=== PATIENT | male | born 1975 | race Caucasian/White ===

== ENCOUNTER 2019-09-28 10:16 | Outpatient (CLI) | payer SELFPAY ==
[2019-09-28 10:43] LABS: Basophils Percent Auto 0.4 % (0.2-1.2); Eosinophils Absolute Auto 0.3 K/mm3 (0-0.3); Hematocrit 29.6 % (42.0-52.0); Hemoglobin 8.8 g/dL (14.0-18.0); Immature Granulocyte Absolute 0.01 K/mm3 (0.00-0.031); Immature Granulocyte Percent A 0.1 % (0-0.5); Lymphocytes Absolute Auto 2.39 K/mm3 (0.9-3.2); Lymphocytes Percent Auto 33.9 % (18.3-44.2); Mean Corpuscular HGB Conc 29.7 g/dl (32-36); Mean Corpuscular Hemoglobin 22.7 pg (26-34); Mean Corpuscular Volume 76.5 fl (80-100); Mean Platelet Volume 8.9 fl (7.4-10.4); Monocytes Absolute Auto 0.6 K/mm3 (0.1-0.6); Monocytes Percent Auto 8.2 % (2.6-8.5); Neutrophils Absolute Auto 3.8 K/mm3 (1.3-6.7); Neutrophils Percent Auto 53.4 % (45.5-73.1); Platelet Count Result 458 k/mm3 (150-375); Red Blood Count 3.87 M/mm3 (4.6-6.20); Red Cell Distribution Width 16.9 % (11.5-14.5); White Blood Count 7.1 K/mm3 (4.5-10.0)
[2019-09-28 10:53] LABS: Anisocytosis 1+ (NORMAL); Hypochromasia 1+ (NORMAL); Platelet Estimate Adequate (Adequate)
[2019-09-28 10:57] LABS: Alanine Aminotransferase 26 U/L (4-50); Albumin Level 3.8 g/dL (3.5-5.1); Alkaline Phosphatase 97 U/L (38-126); Aspartate Amino Transferase 26 U/L (17-59); Bilirubin,Total 0.1 mg/dL (0.2-1.3); Blood Urea Nitrogen 19 mg/dL (9-20); CRP 1.4 mg/dL (<1.0); Calcium 8.7 mg/dL (8.4-10.2); Carbon Dioxide 25 mmol/L (22-30); Chloride 105 mmol/L (98-107); Cholesterol 149 mg/dL (0-200); Estimated Glomerular Filt Rate > 60; Glucose 107 mg/dL (75-110); HDL Direct 38 mg/dL; Sodium 136 mmol/L (137-145); Triglycerides 110 mg/dL (<150)
[2019-09-28 11:06] LABS: LDL Cholesterol Direct 92 mg/dL
[2019-09-28 11:07] LABS: Erythrocyte Sedimentation Rate 67 mm/hr (0-20)
[2019-09-28 12:00] LABS: Folic Acid 12.5 ng/mL (2.76->20)
[2019-09-30 18:58] LABS: Methylmalonic Acid 165 nmol/L (87-318)
== END 2019-09-28 10:17 | disposition home or self-care (01) ==
LOC: ANHLAB 10:21
PROVIDERS: PCP Internal Medicine; Visit Provider Internal Medicine
DX: D50.0 Iron deficiency anemia secondary to blood loss (chronic) (principal); Z79.899 Other long term (current) drug therapy
CPT/HCPCS: 36415; 80053; 80061; 82607; 82746; 83921; 84443; 85025; 85652; 86140

== ENCOUNTER 2020-01-04 07:43 | Outpatient (RCR) | payer MEDICAID, SELFPAY ==
[2019-10-06 10:45] VITALS: BMI 24.7
== END 2020-01-04 23:59 | disposition home or self-care (01) ==
LOC: ANHWOC 07:43
PROVIDERS: PCP Internal Medicine; Visit Provider Internal Medicine
DX: T14.8XXD Other injury of unspecified body region, subsequent encounter (principal)
CPT/HCPCS: 99212; A9270; G0463

== ENCOUNTER 2020-03-28 08:56 | Outpatient (RCR) | payer SELFPAY | END 2020-04-17 23:59 | disposition home or self-care (01) | LOC: ANHWOC 08:56 | PROVIDERS: PCP Internal Medicine; Visit Provider Internal Medicine | DX: S81.831D Puncture wound without foreign body, right lower leg, subsequent encounter (principal) | CPT/HCPCS: 99212; A9270; G0463 ==

== ENCOUNTER 2020-07-11 07:27 | Outpatient (RCR) | payer SELFPAY | END 2020-07-17 23:59 | disposition home or self-care (01) | LOC: ANHWOC 07:27 | PROVIDERS: PCP Internal Medicine; Visit Provider Internal Medicine | DX: S81.831D Puncture wound without foreign body, right lower leg, subsequent encounter (principal) | CPT/HCPCS: 99212; A9270; G0463 ==

== ENCOUNTER 2022-07-03 20:16 | Emergency (ER) | payer SELFPAY ==
[2022-07-03 20:33] VITALS: BP 139/108; PULSE 93; RESP 20; TEMP 36.7; O2SAT 97
--- NOTE | 2022-07-03 21:11 | PC.NURSE ---
PT ELOPED OUT THE EMS ENTRANCE FROM ROOM 10. PT REFUSED TO COME BACK INSIDE TO CONTINUE EVAL. PT DOES NOT HAVE IV IN PLACE. HE HAS BEEN DRINKING ETOH TODAY AND MOST LIKELY INTOXICATED. PT DOES NOT HAVE CAR HERE HE ARRIVED VIA EMS. NAIMA MADE CONTACT WITH PT OUTSIDE AND HE CONTINUED TO REFUSE TO COME BACK INTO ED. JANESSA NARVAEZ NOTIFIED OF INCIDENT AND GIVEN PT DESCRIPTION. PROVIDER STATES PT DOES NOT HAVE TO COME BACK FOR EVAL/TX. INFORMED PD THAT WE WANT TO MAKE SURE PT IS SAFE.
--- NOTE | 2022-07-03 21:14 | ED.WOUNDLAC ---
HPI - Wound/Laceration General Chief Complaint: Wound/Laceration Stated Complaint: LEG WOUNDS, ETOH Time Seen by Provider: 07/03/22 20:28 History of Present Illness HPI narrative: 47-year-old man history of drug abuse presents to the emergency room via EMS intoxicated on EtOH for evaluation of multiple leg ulcerations. Patient admits to drinking 1-2 bottles of vodka daily and has a previous history of IV drug use. States that he has had chronic leg wounds to bilateral legs. Patient states his mother called 911 to have him come to the ER to be evaluated. On presentation, patient was observed looking around the room asking for his dog. Patient denies SI/HI. Related Data Home Medications Medication Instructions Recorded Confirmed No Home Medications 06/18/21 01/09/22 Allergies Allergy/AdvReac Type Severity Reaction Status Date / Time iodine Allergy Intermediate Rash Verified 01/09/22 07:35 Review of Systems Review of Systems: CONSTITUTIONAL: Denies fever, chills, or sweats. EYES: Denies visual changes, redness, or discharge. ENT: Denies rhinorrhea, congestion, sore throat, or otalgia. CARDIOVASCULAR: Denies chest pain, palpitations, or edema. RESPIRATORY: Denies cough or dyspnea. GASTROINTESTINAL: Denies abdominal pain, nausea, vomiting, or diarrhea. GENITOURINARY: Denies dysuria or hematuria. SKIN: Reports multiple lower extremity wounds MUSCULOSKELETAL: Denies back pain, joint pain, or myalgia. NEUROLOGIC: Denies headache, numbness, dizziness, or weakness. PSYCHIATRIC: Denies anxiety or depression. [facility] Past Medical History Medical History Blood loss anemia BMI 23.0-23.9, adult BMI 25.0-25.9,adult BMI 26.0-26.9,adult Drug addiction Encounter for routine adult health examination without abnormal findings Encounter to establish care Hx of drug abuse Iron deficiency anemia On custodial drug therapy Open wound Personal history of nicotine dependence Poor dentition Tobacco abuse Surgical History Surgical History H/O vascular surgery 2020- lower R ext Family History Family History Father Acute myocardial infarction Alcoholism Social History Social History Smoking status: Current every day smoker Gender identity (if verbalized by the patient): Male Exam Narrative: GENERAL: Chronically ill-appearing, and in no acute distress. HEAD: Normocephalic, atraumatic. EYES: Conjunctivae normal, PERRLA and EOMI. CHEST: Clear to auscultation. No respiratory distress. No wheezes rales or rhonchi. HEART: Regular rate and rhythm. No murmur heard. Normal peripheral pulses. ABDOMEN: Soft, nontender, nondistended, normal active bowel sounds. EXTREMITIES: Normal range of motion. No edema. No clubbing or cyanosis SKIN: LLE: 8 cm x 3 cm ovular ulceration involving the subcutaneous and dermal layers with purulent drainage and erythematous borders. RLE: 8 cm x 8 cm circular ulceration to medial posterior calf and 6 cm x 5cm circular ulceration involving the subcutaneous and dermal layers with purulent drainage and erythematous borders NEURO: No focal deficits. Alert and oriented x3. MAEW. CN's II-XI intact bilaterally, normal gait PSYCH: Uncooperative. Alcohol intoxication Course Vital Signs Vital signs: Vital Signs Temperature 36.7 C 07/03/22 20:33 Pulse Rate 93 07/03/22 20:33 Respiratory Rate 20 07/03/22 20:33 Blood Pressure 139/108 H 07/03/22 20:33 Pulse Oximetry 97 07/03/22 20:33 Oxygen Delivery Room Air 07/03/22 20:33 Temperature 36.7 C 07/03/22 20:33 Pulse Rate 93 07/03/22 20:33 Respiratory Rate 20 07/03/22 20:33 Blood Pressure 139/108 H 07/03/22 20:33 Pulse Oximetry 97 07/03/22 20:33 Oxygen Delivery Room Air 07/03/22 20:33 Discharge
== END 2022-07-03 22:07 | disposition left against medical advice (07) ==
PROVIDERS: Emergency Provider Nurse Practitioner Family; PCP Internal Medicine
DX: L97.929 Non-pressure chronic ulcer of unspecified part of left lower leg with unspecified severity (principal); L97.219 Non-pressure chronic ulcer of right calf with unspecified severity; F10.129 Alcohol abuse with intoxication, unspecified; D50.9 Iron deficiency anemia, unspecified; F17.200 Nicotine dependence, unspecified, uncomplicated; Y90.9 Presence of alcohol in blood, level not specified
CPT/HCPCS: 99281

== ENCOUNTER 2022-07-04 07:46 | Emergency (ER) | payer SELFPAY ==
[2022-07-04] VITALS (21 sets, daily range): BP systolic 149–171; BP diastolic 95–117; PULSE 79–105; RESP 13–23; TEMP 36.9; O2SAT 94–98
--- NOTE | 2022-07-04 07:53 | ECG_ITS ---
Measurements Intervals [place] Rate: 103 P: 81 AR: 152 QRS: 96 QRSD: 102 T: 72 QT: 355 QTc: 467 Interpretive Statements SINUS TACHYCARDIA POSSIBLE RIGHT ATRIAL ENLARGEMENT [0.25mV P-WAVE] BORDERLINE RIGHT AXIS DEVIATION [QRS AXIS > 90] BORDERLINE ECG NO PREVIOUS ECG AVAILABLE FOR COMPARISON Electronically Signed On 07-04-2022 14:49:02 LOCK INSTALLER by Simone Rahman M.D.
[2022-07-04] MEDS: LORazepam INJ (*CRX) 2 MG/ML VIAL IV PUSH (08:31)
[2022-07-04 08:32] LABS: Basophils Absolute Auto 0.1 K/mm3 (0.0-0.1); Basophils Percent Auto 0.9 % (0.2-1.2); Eosinophils Percent Auto 0.4 % (0-4.4); Hematocrit 53.1 % (42.0-52.0); Hemoglobin 17.6 g/dL (14.0-18.0); Immature Granulocyte Absolute 0.02 K/mm3 (0.00-0.031); Immature Granulocyte Percent A 0.2 % (0-0.5); Lymphocytes Absolute Auto 1.06 K/mm3 (0.9-3.2); Lymphocytes Percent Auto 11.4 % (18.3-44.2); Mean Corpuscular HGB Conc 33.1 g/dl (32-36); Mean Corpuscular Hemoglobin 30.1 pg (26-34); Mean Corpuscular Volume 90.8 fl (80-100); Monocytes Absolute Auto 0.6 K/mm3 (0.1-0.6); Monocytes Percent Auto 6.9 % (2.6-8.5); Neutrophils Absolute Auto 7.4 K/mm3 (1.3-6.7); Neutrophils Percent Auto 80.2 % (45.5-73.1); Platelet Count Result 209 k/mm3 (150-375); Red Blood Count 5.85 M/mm3 (4.6-6.20); Red Cell Distribution Width 19.7 % (11.5-14.5); White Blood Count 9.3 K/mm3 (4.5-10.0)
[2022-07-04] MEDS: SODIUM CHLORIDE 0.9% IV 1,000 ML 999 ML IV CONT (08:32)
[2022-07-04 08:49] LABS: Ethanol 11 mg/dL (<10)
[2022-07-04 08:50] LABS: Alanine Aminotransferase 63 U/L (6-50); Albumin Level 3.9 g/dL (3.5-5.1); Anion Gap 6 mmol/L (8-16); Aspartate Amino Transferase 123 U/L (17-59); Bilirubin,Total 0.9 mg/dL (0.2-1.3); Blood Urea Nitrogen 12 mg/dL (9-20); Calcium 8.6 mg/dL (8.4-10.2); Carbon Dioxide 32 mmol/L (22-30); Chloride 100 mmol/L (98-107); Estimated CRCL calculation 117 ml/min; Estimated Glomerular Filt Rate > 60; Glucose 117 mg/dL (65-110); Potassium 4.3 mmol/L (3.4-5.0); Sodium 138 mmol/L (137-145)
[2022-07-04 08:59] LABS: Alkaline Phosphatase 1214 U/L (38-126)
--- NOTE | 2022-07-04 09:04 | PC.NURSE ---
Pt states he is unable to urinate at this time
[2022-07-04 10:36] LABS: Add Urine Microscopic? YES; Appearance Urine Clear (Clear); Bilirubin Urine Negative (Negative); Blood Urine Trace-Intact (Negative); Color Urine Yellow (Yellow); Glucose Urine UA Negative (Negative); Ketones Urine Trace mg/dL (Negative); Leukocyte Esterase Ur Negative LEU/UL (Negative); Nitrate Urine Negative (Negative); Protein Urine 2+ mg/dL (Negative); pH Urine 8.5 (5.0-9.0)
[2022-07-04 10:51] LABS: Mucus Urine Rare /lpf; WBC Urine 0-3 /hpf
[2022-07-04] MEDS: SODIUM CHLORIDE 0.9% IV 1,000 ML 1000 ML (12:30)
--- NOTE | 2022-07-04 14:53 | ED.ALCOHOL ---
HPI - Alcohol General Chief Complaint: Alcohol Stated Complaint: ETOH withdrawl Time Seen by Provider: 07/04/22 07:59 Source: patient Mode of arrival: ambulatory Limitations: no limitations History of Present Illness HPI narrative: 47-year-old with a history of alcoholism, IV drug abuse here with complaints of having withdrawal symptoms. He states that he feels shaky, nervous and heart racing for past 1 day. His last drink was 2 days ago. Patient states that he usually drinks about 1/5 of vodka on a daily basis. Also states he had used IV heroin 2 days ago. She presently denies any chest pain or shortness of breath. Complains of leg ulcers on both the legs which has been ongoing for quite some time. No history of fever or chills. Denies abdominal pain, nausea or vomiting. MD complaint: alcohol withdrawal Last drink: days (ago) (1) Chronic alcohol use: Yes Previous visits for alcohol intoxication: Yes Recent trauma: No Associated symptoms: denies other symptoms, diaphoresis and tremors Treatments prior to arrival: none Related Data Allergies Allergy/AdvReac Type Severity Reaction Status Date / Time iodine Allergy Intermediate Rash Verified 07/04/22 10:30 Review of Systems Review of Systems: All systems reviewed & are unremarkable except as noted in HPI and below Constitutional: Constitutional: Reports no additional constitutional complaints Eyes: Eyes: Reports no additional eye complaints ENT: Reports system reviewed and no additional complaints, except as documented Cardiovascular: Cardiovascular: Reports no additional cardiovascular complaints Respiratory: Respiratory: Reports no additional respiratory complaints Gastrointestinal: Gastrointestinal: Reports no additional gastrointestinal complaints Musculoskeletal: Musculoskeletal: Reports no additional musculoskeletal complaints Neurologic: Reports system reviewed and no additional complaints, except as documented Psychiatric: Psychiatric: Reports anxiety Endocrine: Endocrine: Reports no additional endocrine complaints [facility] Past Medical History Medical History Blood loss anemia BMI 23.0-23.9, adult BMI 25.0-25.9,adult BMI 26.0-26.9,adult Drug addiction Encounter for routine adult health examination without abnormal findings Encounter to establish care Hx of drug abuse Iron deficiency anemia On group home drug therapy Open wound Personal history of nicotine dependence Poor dentition Tobacco abuse Surgical History Surgical History H/O vascular surgery 2020- lower R ext Family History Family History Father Acute myocardial infarction Alcoholism Social History Social History Smoking status: Current every day smoker Gender identity (if verbalized by the patient): Male Exam Narrative: GENERAL: Well-appearing, well-nourished, and in no acute distress. Anxious look HEAD: Normocephalic, atraumatic. EYES: PERRLA and EOMI. NECK: Supple. CHEST: Clear to auscultation. No respiratory distress. HEART: Tachycardia. No murmur heard. Normal peripheral pulses. ABDOMEN: Soft, nontender, nondistended, normal active bowel sounds. EXTREMITIES: Normal range of motion. No edema. He has 5 cm nonhealing ulcer on his right as well as left leg with a thick eschar no drainage SKIN: Warm, dry, no rash. NEURO: No focal deficits. Alert and oriented x3. PSYCH: Normal mood and affect. Course Course Emergency Course: 47-year-old with a history of alcohol and IV drug abuse now having withdrawal symptoms he was given IV fluids and IV Ativan. Patient wants to be admitted. We did inform him that we do not admit him for rehab program in this hospital. Did consult pharmacovigilance specialist who was here to see the patient. He was given resources
--- NOTE | 2022-07-04 15:11 | PCCCNOTE ---
Addendum entered by Janice Austin RN 07/04/22 15:44: Dr. Magdaleno has made a medical decision to admit. Original Note: Late entry: Called by ER to meet with patient regarding detox at 1140. Met with patient he states that he states that his last drink was two days ago. Per Dr. Magdaleno, he does not have a diagnosis for admisison. He lives in [place] with his . Patient is seeking detox. Patient states that he has never done detox before. Patient states that he is self pay, I asked if he has ever applied for medicaid but he is unsure. Called to Joe at [facility] and he will be over in a 1/2 hour to meet with the patient. Called to [facility] no beds till . Called to [facility] and left a message. Called to [facility] no beds and no medical screening appointments until Thursday. Message left with [facility]. Message left with [facility]. Called to [facility], they do not do medical detox. Joe from [facility] for assessment. Joe states that he has been in contact with Rosana at [facility], the do not have beds at this time Patient is agreeable to be in contact with Joe daily, and Rosana will continue to be in contact with Joe on bed status. Dr. Magdaleno updated, and plans to discharge with medication for withdrawal.
[2022-07-04] MEDS: ONDANSETRON INJ 4 MG/2 ML VIAL IV PUSH (15:18)
--- NOTE | 2022-07-04 16:14 | PC.NURSE ---
Patient continued to have tremors. Provider was to admit patient, but patient refused admission. Patient A&Ox4 and able to make decisions himself. Patient discharged per Provider. Patient wheeled out of department by primary RN.
[2022-07-04 16:33] LABS: Influenza A QL RT-PCR Negative (Negative); Influenza B QL RT-PCR Negative (Negative); SARS-CoV-2 RNA PCR Negative
== END 2022-07-04 16:17 | disposition home or self-care (01) ==
PROVIDERS: Emergency Provider Family Medicine; PCP Internal Medicine
DX: F10.239 Alcohol dependence with withdrawal, unspecified (principal); D50.9 Iron deficiency anemia, unspecified; F17.200 Nicotine dependence, unspecified, uncomplicated; R00.0 Tachycardia, unspecified; R94.31 Abnormal electrocardiogram [ECG] [EKG]; Y90.0 Blood alcohol level of less than 20 mg/100 ml
CPT/HCPCS: 36415; 80053; 80307; 81001; 85025; 87636; 93005; 96361; 96374; 96375; 99284; J2060; J2405; J7030

== ENCOUNTER 2023-10-19 21:28 | Emergency (ER) | payer SELFPAY ==
[2023-10-19 21:34] VITALS: BP 132/90; PULSE 105; RESP 16; TEMP 36.1; O2SAT 99
[2023-10-20 01:13] VITALS: BP 147/94; PULSE 100; RESP 18; O2SAT 99
[2023-10-20 02:06] VITALS: BP 146/96; PULSE 100; RESP 18; O2SAT 99
--- NOTE | 2023-10-20 04:17 | ED.GENADULT ---
HPI - General Adult General Chief complaint: Nausea/Vomiting/Diarrhea Stated complaint: weakness, dehydration, n/v, sore to R leg Time Seen by Provider: 10/20/23 01:13 History of Present Illness HPI narrative: Patient presenting with concern for possible withdrawal, he does use fentanyl and alcohol daily, last use 3:00 p.m. for both. He also has a chronic ulcer on his right leg that he has been caring for which has been healing well. Related Data Allergies Allergy/AdvReac Type Severity Reaction Status Date / Time iodine Allergy Intermediate Rash Verified 10/19/23 21:29 Review of Systems Review of Systems: CONST: No fever. HEENT: No sore throat C/V: No chest pain RESP: No cough GI: Nausea : No dysuria. 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 Open wound Personal history of nicotine dependence Poor dentition Tobacco abuse Surgical History Surgical History H/O vascular surgery 2020- lower R ext Family History Family History Father Acute myocardial infarction Alcoholism Social History Social History Smoking status: Current every day smoker Second hand tobacco smoke exposure: Yes Substance use: former Lack of Transportation: No Lack of Food: Never True Concerned About Future Housing: No Difficulty Paying Gas/Electric Bills: No Difficulty Paying for Meds: No Currently Unemployed: No Education: Trade/Vocational Certificate Difficulty w/ Childcare or Family Care: No Living arrangements: with family Occupation/Education: occupation Gender identity (if verbalized by the patient): Male Exam Narrative: EXAMINATION OF ORGAN SYSTEMS/BODY AREAS: Constitutional: Vital signs per nursing GENERAL:[No acute distress, non-toxic appearing.] HEAD: Normal with no signs of head trauma. EYES: EOMI, conjunctiva normal ENT: Hearing grossly intact LUNGS: Nonlabored breathing. HEART: [Regular rate and rhythm] ABD: [Soft], [nontender to palpation] EXT: Normal range of motion including normal flexion and extension of right knee SKIN: Large ulcer to the right lower leg that does appear to be chronic without surrounding erythema or purulent drainage NEURO: [Alert and oriented x 3. No gross focal sensory or strength deficits.] No tremors. PSYCH: Normal affect Course Vital Signs Vital signs: Vital Signs Temperature 97 F L 10/19/23 21:34 Pulse Rate 105 H 10/19/23 21:34 Respiratory Rate 16 10/19/23 21:34 Blood Pressure 132/90 10/19/23 21:34 Pulse Oximetry 99 10/19/23 21:34 Oxygen Delivery Room Air 10/19/23 21:34 Temperature 97 F L 10/19/23 21:34 Pulse Rate 100 10/20/23 02:06 Respiratory Rate 18 10/20/23 02:06 Blood Pressure 146/96 H 10/20/23 02:06 Pulse Oximetry 99 10/20/23 02:06 Oxygen Delivery Room Air 10/19/23 21:34 Medical Decision Making [facility] Narrative Medical decision making narrative: Patient with history of alcohol and mental disorder presents here due to concern for withdrawal, last use was less than 12 hours ago, I did let the patient know that unfortunately we do not have detox here, he is well-appearing here, with normal vital signs, no tremors, is not in acute withdrawal on my exam currently, he has been on Suboxone in the past and he has never had alcohol withdrawal seizures when he stops drinking, he has his brot
== END 2023-10-20 02:20 | disposition home or self-care (01) ==
PROVIDERS: Emergency Provider Emergency Medicine
DX: F11.10 Opioid abuse, uncomplicated (principal); F10.10 Alcohol abuse, uncomplicated; Y90.9 Presence of alcohol in blood, level not specified; D50.9 Iron deficiency anemia, unspecified; F17.200 Nicotine dependence, unspecified, uncomplicated
CPT/HCPCS: 99283

== ENCOUNTER 2023-11-29 09:12 | Emergency (ER) | payer SELFPAY ==
[2023-11-29] VITALS (14 sets, daily range): BP systolic 129–157; BP diastolic 102–108; PULSE 117–122; RESP 14–19; TEMP 36.6; O2SAT 91–100
--- NOTE | ~2023-11-29 | XR_ITS ---
EXAMINATION: XR chest 1V portable DATE: 11/29/2023 09:41 INDICATION: Shortness of breath. TECHNIQUE: A single frontal view of the chest was obtained on 2 radiographs. COMPARISON: None. FINDINGS: There is no pneumonia, pleural effusion, or pneumothorax. The heart size is normal. IMPRESSION: 1. No acute cardiopulmonary disease. Reviewed, dictated and finalized at location E.
--- NOTE | 2023-11-29 09:23 | PC.NURSE ---
pt said he is IV drug user for 25 years, last time he had any drugs of this morning at 630am Fentanyl, did drink alcohol too. Wound to right lower leg from injecting IV drug noted.
--- NOTE | 2023-11-29 10:10 | ED.GENADULT ---
HPI - General Adult General Chief complaint: Shortness of Breath/Dyspnea Stated complaint: dyspnea Time Seen by Provider: 11/29/23 09:27 History of Present Illness HPI narrative: Patient is a 48-year-old male who presents to the emergency department this morning complaining of shortness of breath. Patient admits to have a history of asthma. Patient is presenting from a local police department. He does present here via EMS and EMS did administer DuoNeb breathing treatment prior to arrival. Patient admits that he does use an inhaler for his shortness of breath but felt as though it is not working. He denies any sharp stabbing chest pain, denies any nausea or vomiting, and abdominal pain, fevers or chills. He is currently denying any additional symptoms or concerns at this time. Related Data Allergies Allergy/AdvReac Type Severity Reaction Status Date / Time iodine Allergy Intermediate Rash Verified 10/19/23 21:29 Review of Systems Review of Systems: All systems are reviewed and are negative unless stated otherwise in the HPI. [facility] Past Medical History Medical History Blood loss anemia BMI 23.0-23.9, adult BMI 25.0-25.9,adult BMI 26.0-26.9,adult Drug addiction Encounter for routine adult health examination without abnormal findings Encounter to establish care Hx of drug abuse Iron deficiency anemia On penitentiary drug therapy Open wound Personal history of nicotine dependence Poor dentition Tobacco abuse Surgical History Surgical History H/O vascular surgery 2020- lower R ext Family History Family History Father Acute myocardial infarction Alcoholism Social History Social History Smoking status: Current every day smoker Second hand tobacco smoke exposure: Yes Substance use: former Lack of Transportation: No Lack of Food: Never True Concerned About Future Housing: No Difficulty Paying Gas/Electric Bills: No Difficulty Paying for Meds: No Currently Unemployed: No Education: Trade/Vocational Certificate Difficulty w/ Childcare or Family Care: No Living arrangements: with family Occupation/Education: occupation Gender identity (if verbalized by the patient): Male Exam Narrative: General: Alert, awake, afebrile, in no acute distress. HEENT: PERRL, no rhinorrhea, no post nasal drip, oropharynx clear. Cardiovascular: Tachycardic with regular rhythm, no murmurs, rubs or gallops, no peripheral edema. Respiratory: Coarse breath sounds bilaterally, no tachypnea, no wheezing appreciated, no respiratory distress. Abdomen: Soft, nontender, nondistended, no rebound, no guarding, no peritoneal signs. Musculoskeletal: No joint swelling or deformity, normal muscle tone. Skin: No rashes or petechia, no signs of infection. Neurological: Alert and oriented to person, place, and time. Follows all commands. No focal deficits, speech is clear and fluent. Course Vital Signs Vital signs: Vital Signs Pulse Rate 122 H 11/29/23 09:18 Respiratory Rate 14 11/29/23 09:18 Blood Pressure 130/103 H 11/29/23 09:18 Pulse Oximetry 94 11/29/23 09:18 Temperature 97.9 F 11/29/23 09:20 Pulse Rate 122 H 11/29/23 10:30 Respiratory Rate 17 11/29/23 10:30 Blood Pressure 157/102 H 11/29/23 10:16 Pulse Oximetry 95 11/29/23 10:16 Oxygen Delivery Room Air 11/29/23 09:22 Medical Decision Making MDM Narrative Medical decision making narrative: The patient was evaluated by myself in the emergency department. History is obtained from patient who is an independent historian and physical exam was performed. External medical records were reviewed at this time. IV was established and pertinent tests were ordered. Patient was administered a DuoNeb breathi
[2023-11-29] MEDS: IPRATROPIUM 0.5 MG/ALBUTEROL SULFATE 2.5 MG AMPUL.NEB 3 ML INHALATION (10:15)
--- NOTE | 2023-11-29 10:35 | PC.NURSE ---
Pt refuses IV, and IV medications, said I want to leave, EDP made franco. AMA paper signed
== END 2023-11-29 10:40 | disposition left against medical advice (07) ==
LOC: ANHED 09:34
PROVIDERS: Emergency Provider Emergency Medicine; PCP Internal Medicine
DX: J45.901 Unspecified asthma with (acute) exacerbation (principal); R06.02 Shortness of breath; F17.210 Nicotine dependence, cigarettes, uncomplicated; D64.9 Anemia, unspecified
CPT/HCPCS: 71045; 94640; 99284

== ENCOUNTER 2023-11-29 11:59 | Emergency (ER) | payer SELFPAY ==
--- NOTE | ~2023-11-29 | XR_ITS ---
EXAMINATION: XR tibia fibula RT 2V DATE: 11/29/2023 13:49 INDICATION: Lower leg ulcer. TECHNIQUE: 2 views of right tibia and fibula on 4 radiographs were obtained. COMPARISON: None. FINDINGS: Bone alignment is normal. No fracture. There is nonaggressive mature periosteal reaction of the tibia and fibula. Joint spaces are normal. No knee joint effusion. There are embolization coils posterior to the tibia. IMPRESSION: 1. Nonaggressive mature periosteal reaction of the tibia and fibula, which is most commonly seen with venous stasis or old healed fractures. Reviewed, dictated and finalized at location E. IMPRESSION: 1. Nonaggressive mature periosteal reaction of the tibia and fibula, which is m ost commonly seen with venous stasis or old healed fractures.
[2023-11-29 12:24] VITALS: BP 112/83; PULSE 128; RESP 18; TEMP 37; O2SAT 96
--- NOTE | 2023-11-29 12:37 | ED.GENADULT ---
HPI - General Adult General Chief complaint: Medical Clearance Stated complaint: fit for confinement Time Seen by Provider: 11/29/23 12:16 History of Present Illness HPI narrative: Patient is 48-year-old male who presents to the emergency department this morning in police custody for fit for confinement. Patient was seen at our facility earlier today for an asthma exacerbation and left against medical advice prior to completion of his workup. Patient got arrested at and was brought by PD for evaluation as patient does have a wound in his right lower extremity along his posterior calf region that he does not seem to be concerned about. Patient states that he got the wound from shooting heroin into his lack. He admits that he has had this wound for years and sometimes it smells bad but otherwise does not bother him. Patient denies any pain along his wound and is currently denying any other symptoms. Patient's only complaint is not wanting to go to [facility]. Patient admits to history of IV heroin use and alcohol abuse. Patient states that he did drink a whole bottle of alcohol this morning, can not specify what type of bottle and admits to drinking 2 beers as well. Related Data Allergies Allergy/AdvReac Type Severity Reaction Status Date / Time iodine Allergy Intermediate Rash Verified 11/29/23 15:19 Review of Systems Review of Systems: All systems are reviewed and are negative unless stated otherwise in the HPI. PMF Past Medical History Medical History Blood loss anemia BMI 23.0-23.9, adult BMI 25.0-25.9,adult BMI 26.0-26.9,adult Drug addiction Encounter for routine adult health examination without abnormal findings Encounter to establish care Hx of drug abuse Iron deficiency anemia On senior care drug therapy Open wound Personal history of nicotine dependence Poor dentition Tobacco abuse Surgical History Surgical History H/O vascular surgery 2020- lower R ext Family History Family History Father Acute myocardial infarction Alcoholism Social History Social History Smoking status: Current every day smoker Second hand tobacco smoke exposure: Yes Substance use: former Lack of Transportation: No Lack of Food: Never True Concerned About Future Housing: No Difficulty Paying Gas/Electric Bills: No Difficulty Paying for Meds: No Currently Unemployed: No Education: Trade/Vocational Certificate Difficulty w/ Childcare or Family Care: No Living arrangements: with family Occupation/Education: occupation Gender identity (if verbalized by the patient): Male Exam Narrative: General: Alert, awake, afebrile, in no acute distress. HEENT: PERRL, no rhinorrhea, no post nasal drip, oropharynx clear. Cardiovascular: Regular rate and rhythm, no murmurs, rubs or gallops, no peripheral edema. Respiratory: Coarse breath sounds bilaterally, no tachypnea, no wheezing noted, no respiratory distress. Abdomen: Soft, nontender, nondistended, no rebound, no guarding, no peritoneal signs. Musculoskeletal: No joint swelling or deformity, normal muscle tone, large wound along the patient's right posterior calf appears to be chronic in nature, some yellow/greenish dried discharge notes along the edges. Skin: No rashes or petechia, no signs of infection. Neurological: Alert and oriented to person, place, and time. Follows all commands. No focal deficits, speech is clear and fluent. Course Vital Signs Vital signs: Vital Signs Temperature 98.6 F 11/29/23 12:24 Pulse Rate 128 H 11/29/23 12:24 Respiratory Rate 18 11/29/23 12:24 Blood Pressure 112/83 11/29/23 12:24 Pulse Oximetry 96 11/29/23 12:24 Temperature 98.6 F 11/29/23 12:24 Pulse Rate 128 H 11/29/23 12:24 R
[2023-11-29] MEDS: SODIUM CHLORIDE 0.9% IV 1,000 ML 999 ML IV CONT (13:28)
[2023-11-29 13:40] LABS: Basophils Absolute Auto 0.1 K/mm3 (0.0-0.1); Basophils Percent Auto 0.7 % (0.2-1.2); Hematocrit 46.8 % (42.0-52.0); Hemoglobin 16.8 g/dL (14.0-18.0); Immature Granulocyte Absolute 0.04 K/mm3 (0.00-0.031); Immature Granulocyte Percent A 0.4 % (0-0.5); Lymphocytes Absolute Auto 1.29 K/mm3 (0.9-3.2); Lymphocytes Percent Auto 11.4 % (18.3-44.2); Mean Corpuscular HGB Conc 35.9 g/dl (32-36); Mean Corpuscular Hemoglobin 36.1 pg (26-34); Mean Corpuscular Volume 100.4 fl (80-100); Mean Platelet Volume 10.1 fl (7.4-10.4); Monocytes Absolute Auto 0.6 K/mm3 (0.1-0.6); Monocytes Percent Auto 4.9 % (2.6-8.5); Neutrophils Absolute Auto 9.4 K/mm3 (1.3-6.7); Neutrophils Percent Auto 82.6 % (45.5-73.1); Platelet Count Result 387 k/mm3 (150-375); Red Blood Count 4.66 M/mm3 (4.6-6.20); Red Cell Distribution Width 13.8 % (11.5-14.5); White Blood Count 11.3 K/mm3 (4.5-10.0)
[2023-11-29 13:50] LABS: Alanine Aminotransferase 71 U/L (6-50); Albumin Level 4.1 g/dL (3.5-5.1); Alkaline Phosphatase 504 U/L (38-126); Anion Gap 11 mmol/L (4-12); Aspartate Amino Transferase 139 U/L (17-59); Blood Urea Nitrogen 16 mg/dL (9-20); Carbon Dioxide 30 mmol/L (22-30); Chloride 95 mmol/L (98-107); Estimated CRCL calculation 92 ml/min; Estimated Glomerular Filt Rate > 60; Glucose 131 mg/dL (65-110); Potassium 3.2 mmol/L (3.4-5.0); Sodium 136 mmol/L (137-145)
[2023-11-29 13:51] LABS: Lactic Acid Reflex 4.1 mmol/L (0.7-2.0)
[2023-11-29] MEDS: POTASSIUM CHLORIDE 20 MEQ ER TABLET 40 MEQ PO (14:03)
[2023-11-29] MEDS: MORPHINE SULFATE (*CRX) 2 MG/ML INJ IV PUSH (15:17)
[2023-11-29] MEDS: ceFAZolin 1 GM/NS 50 ML 1 GM/50 ML BAG IVPB (15:39)
--- NOTE | 2023-11-29 15:57 | PC.NURSE ---
PD notified that pt is going to be admitted. PD removed pt handcuffs and left the building. After PD left, pt requests to leave. Pt signed AMA form and left the room.
[2023-11-29 16:00] VITALS: PULSE 68; RESP 16; O2SAT 98
--- NOTE | 2023-11-29 16:00 | PC.NURSE ---
Primary Substance Abuse Counselor and 2nd MS charge nurse notified that pt leaving AMA.
[2023-11-29 16:37] LABS: Reflex Lactic Acid Yes or No Add Lactic
== END 2023-11-29 16:01 | disposition left against medical advice (07) ==
PROVIDERS: Emergency Provider Emergency Medicine; PCP Internal Medicine
DX: S81.801A Unspecified open wound, right lower leg, initial encounter (principal); E87.20 Acidosis, unspecified; R74.01 Elevation of levels of liver transaminase levels; F10.10 Alcohol abuse, uncomplicated; F17.210 Nicotine dependence, cigarettes, uncomplicated; X58.XXXA Exposure to other specified factors, initial encounter
CPT/HCPCS: 36415; 73590; 80053; 83605; 85025; 87040; 96361; 96365; 96375; 99284; A9270; J0690; J2270; J7030

== ENCOUNTER 2023-11-29 17:39 | Emergency (ER) | payer SELFPAY ==
[2023-11-29 17:56] VITALS: BP 114/78; PULSE 105; RESP 20; TEMP 36.4; O2SAT 95
--- NOTE | 2023-11-29 18:03 | ED.GENADULT ---
HPI - General Adult General Chief complaint: Psychiatric Symptoms <Zeferino Mccloud MD - Last Filed: 11/30/23 16:43> Stated complaint: PSYCH <Zeferino Mccloud MD - Last Filed: 11/30/23 16:43> Time Seen by Provider: 11/29/23 17:48 <Zeferino Mccloud MD - Last Filed: 11/30/23 16:43> History of Present Illness HPI narrative: Patient is a 48-year-old male who presents the emergency department this evening again for the 3rd time today after signing out AMA twice. Patient is currently in PD custody and initially was seen earlier today for shortness of breath and concern for an asthma exacerbation, patient left AMA. Patient then return to the emergency department in PD custody for fit for confinement, however, patient was noted to have a chronic open wound to his right lower extremity and due to his tachycardia, there was some concern for sepsis and patient was admitted for IV antibiotics. Shortly after patient was admitted, he did decide to leave against medical advice. Patient is then coming in here today due to concern for suicidal and homicidal ideations. Patient went to his home and did some drugs, he states that he took 3 pills of the white stuff and then took 3 shots of vodka. Patient states that his mom had called police and patient was picked up and brought here. Patient told the police justice that if he had his gun he would end his life right now and that he would drive his car off the bridge into the [place]. When patient was questioned regarding these after initially denying suicidal homicidal ideations, he states that he may have said those words but he did not mean them since he has a dog and he has nieces and he does not want to end his life. <Zeferino Mccloud MD - Last Filed: 11/30/23 16:43> Related Data Allergies/adverse reactions: Allergies Allergy/AdvReac Type Severity Reaction Status Date / Time iodine Allergy Intermediate Rash Verified 11/29/23 15:19 <Zeferino Mccloud MD - Last Filed: 11/30/23 16:43> Review of Systems Review of Systems: All systems are reviewed and are negative unless stated otherwise in the HPI. 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 Open wound Personal history of nicotine dependence Polydrug abuse, continuous Poor dentition Tobacco abuse <Zeferino Mccloud MD - Last Filed: 11/30/23 16:43> Surgical History Surgical History: Surgical History H/O vascular surgery 2020- lower R ext <Zeferino Mccloud MD - Last Filed: 11/30/23 16:43> Family History Family History: Family History Father Acute myocardial infarction Alcoholism <Zeferino Mccloud MD - Last Filed: 11/30/23 16:43> Social History Social History: Social History Smoking packs per day: 3 Smoking cigarettes per day: 60.0 Years smoked: 30 Smoking pack-years: 90.00 Smoking status: Current every day smoker Tobacco type: cigarettes Second hand tobacco smoke exposure: Yes Alcohol intake: current Drinks per week: 300 Substance use: current Substance use type: opiates Other substance usage details: injection Last use: 11/29/2023 Do You Feel Safe in your Home?: Yes Lack of Transportation: No Lack of Food: Never True Current Housing: I Do Not Have Housing Concerned About Future Housing: YES Difficulty Paying Gas/Electric Bills: YES Difficulty Paying for Meds: YES Currently Unemployed: YES Ed
--- NOTE | 2023-11-29 18:25 | PC.NURSE ---
Called phlebotomy to assist with blood draw.
[2023-11-29 19:18] LABS: Basophils Absolute Auto 0.1 K/mm3 (0.0-0.1); Basophils Percent Auto 0.4 % (0.2-1.2); Hematocrit 38.5 % (42.0-52.0); Hemoglobin 13.5 g/dL (14.0-18.0); Immature Granulocyte Absolute 0.05 K/mm3 (0.00-0.031); Immature Granulocyte Percent A 0.4 % (0-0.5); Lymphocytes Absolute Auto 0.85 K/mm3 (0.9-3.2); Lymphocytes Percent Auto 6.1 % (18.3-44.2); Mean Corpuscular HGB Conc 35.1 g/dl (32-36); Mean Corpuscular Hemoglobin 35.8 pg (26-34); Mean Corpuscular Volume 102.1 fl (80-100); Mean Platelet Volume 10.4 fl (7.4-10.4); Monocytes Absolute Auto 0.8 K/mm3 (0.1-0.6); Monocytes Percent Auto 5.8 % (2.6-8.5); Neutrophils Absolute Auto 12.2 K/mm3 (1.3-6.7); Neutrophils Percent Auto 87.3 % (45.5-73.1); Platelet Count Result 308 k/mm3 (150-375); Red Blood Count 3.77 M/mm3 (4.6-6.20); Red Cell Distribution Width 13.8 % (11.5-14.5); White Blood Count 13.9 K/mm3 (4.5-10.0)
--- NOTE | 2023-11-29 19:18 | PC.NURSE ---
Report received from NANO Baumann. Assumed care of patient at this time.
[2023-11-29 19:27] LABS: Acetaminophen < 10 ug/mL (10-30); Ethanol 178 mg/dL (<10); Salicylate < 1.0 mg/dL (2-20)
[2023-11-29 19:28] LABS: Alanine Aminotransferase 50 U/L (6-50); Albumin Level 3.2 g/dL (3.5-5.1); Alkaline Phosphatase 369 U/L (38-126); Anion Gap 14 mmol/L (4-12); Aspartate Amino Transferase 95 U/L (17-59); Bilirubin,Total 0.8 mg/dL (0.2-1.3); Blood Urea Nitrogen 16 mg/dL (9-20); Carbon Dioxide 20 mmol/L (22-30); Chloride 100 mmol/L (98-107); Estimated CRCL calculation 90 ml/min; Estimated Glomerular Filt Rate > 60; Glucose 160 mg/dL (65-110); Potassium 3.1 mmol/L (3.4-5.0); Sodium 134 mmol/L (137-145)
--- NOTE | 2023-11-29 19:44 | PC.NURSE ---
When this RN went to assess patient, patient yelling and stating I don't feel good! I am dope sick, I need the doctor!! This RN informed ERP and ERP and this RN went to speak with patient. Patient agreeable to meds to help with anxiety and withdrawal. Patient denies any SI/HI.
[2023-11-29] MEDS: BUPRENORPHINE HCL (*CRX) 2 MG SUBLINGUAL TABLET 8 MG PO ×2 (20:04→21:42)
[2023-11-29] MEDS: POTASSIUM CHLORIDE 20 MEQ PACKET (FOR LIQUID) 40 MEQ PO (20:10)
[2023-11-29] MEDS: NICOTINE (*PBKC) 14 MG PATCH 1 PATCH TRANSDERM (20:44)
[2023-11-29] MEDS: CEPHALEXIN 500 MG CAPSULE PO (21:41)
--- NOTE | 2023-11-29 21:44 | PC.NURSE ---
Patient requests to go home. ERP notified. Patient given more suboxone and abx for infection. Patient a/ox4, denies any SI/HI. refrigeration specialist aware and arranging for cab.
--- NOTE | 2023-11-29 22:18 | PC.NURSE ---
Patient unsteady on his feet, unable to leave yet. Patient informed he needs to be more steady on his feet before discharge.
--- NOTE | 2023-11-29 22:44 | PC.NURSE ---
Addendum entered by Jody Maldonado RN 11/29/23 22:48: Patient had consistently denied any SI/HI while in room 15. Original Note: Patient consistently requesting to leave. Patient demonstrated a steady unassisted gait. ERP watched patient demonstrate a steady gait. Patient stating he wants to leave AMA. Patient informed of risks of leaving AMA and benefits of staying. Patient a/ox4, verbalized understanding. Patient signed AMA form and discharge papers. Patient refused repeat VS. Patient taken to the waiting room by security to wait for his cab. Patient has belongings with him.
== END 2023-11-29 22:49 | disposition left against medical advice (07) ==
PROVIDERS: Emergency Medicine; Emergency Provider Student in an Organized Health Care Education/Training Program; PCP Internal Medicine
DX: S81.801A Unspecified open wound, right lower leg, initial encounter (principal); F10.10 Alcohol abuse, uncomplicated; Y90.6 Blood alcohol level of 120-199 mg/100 ml; F17.210 Nicotine dependence, cigarettes, uncomplicated; D64.9 Anemia, unspecified; X58.XXXA Exposure to other specified factors, initial encounter; Z59.02 Unsheltered homelessness
CPT/HCPCS: 36415; 80053; 80307; 85025; 99284; A9270

== ENCOUNTER 2023-11-30 00:17 | Inpatient (IN) | payer SELFPAY ==
[2023-11-30] VITALS (34 sets, daily range): BP systolic 113–158; BP diastolic 95–110; PULSE 88–112; RESP 15–45; TEMP 36.3–36.9; O2SAT 91–100
--- NOTE | ~2023-11-30 | XR_ITS ---
EXAMINATION: XR chest 1V portable DATE: 11/30/2023 05:46 INDICATION: Elevated troponin. TECHNIQUE: A single frontal view of the chest was obtained on 2 radiographs. COMPARISON: Chest single view 11/29/2023 FINDINGS: There is no pneumonia, pleural effusion, or pneumothorax. The heart size is normal. IMPRESSION: 1. No acute cardiopulmonary disease. Reviewed, dictated and finalized at location E.
--- NOTE | 2023-11-30 02:34 | PC.NURSE ---
PD at bedside. Patient requesting to leave. ERP notified and speaking with patient and PD.
--- NOTE | 2023-11-30 02:37 | ED.GENADULT ---
HPI - General Adult General Chief complaint: Unspecified Stated complaint: Cold, wounds to leg Time Seen by Provider: 11/30/23 01:26 Source: patient and police Limitations: no limitations History of Present Illness HPI narrative: Patient is a 48-year-old male presents to the emergency department because he was repeatedly going to his mother's home where they have a restraining order against him and said that he was cold to police and was brought here for further evaluation. Patient states that he was going to his mom's house to get his car that is there and he was going to take the car to chest not to get treatment for his alcohol use disorder. Patient notes that he has been drinking daily at approximately a 5th per day last drink was earlier today. Patient also admits to using opioids daily. Patient was given buprenorphine earlier today. Patient offered treatment for his leg wound and treatment for alcohol withdrawal addition opioid withdrawal and would like to proceed with this. Patient denies homicidal or suicidal ideations. Related Data Allergies Allergy/AdvReac Type Severity Reaction Status Date / Time iodine Allergy Intermediate Rash Verified 11/29/23 15:19 Review of Systems Review of Systems: All systems reviewed & are unremarkable except as noted in HPI and below PMFSH Past Medical History Medical History Blood loss anemia BMI 23.0-23.9, adult BMI 25.0-25.9,adult BMI 26.0-26.9,adult Drug addiction Encounter for routine adult health examination without abnormal findings Encounter to establish care Hx of drug abuse Iron deficiency anemia On retirement drug therapy Open wound Personal history of nicotine dependence Poor dentition Tobacco abuse Surgical History Surgical History H/O vascular surgery 2020- lower R ext Family History Family History Father Acute myocardial infarction Alcoholism Social History Social History Smoking packs per day: 30 Smoking cigarettes per day: 600.0 Years smoked: 30 Smoking pack-years: 900.00 Smoking status: Current every day smoker Tobacco type: cigarettes Second hand tobacco smoke exposure: Yes Drinks per week: 300 Substance use: former Substance use type: opiates Do You Feel Safe in your Home?: Yes Lack of Transportation: No Lack of Food: Never True Current Housing: I Do Not Have Housing Concerned About Future Housing: YES Difficulty Paying Gas/Electric Bills: YES Difficulty Paying for Meds: YES Currently Unemployed: YES Education: Associate Degree Difficulty w/ Childcare or Family Care: No Living arrangements: with family Occupation/Education: occupation Gender identity (if verbalized by the patient): Male Spiritual care concerns: No Comments At time of signature, I have reviewed and agree with nursing past medical, surgical, social and family history unless otherwise noted. Please see the nursing chart for further information. There is no relevant family history pertinent to the presenting complaint. Exam Narrative: CONST: No acute distress. Well nourished. HENMT: Head is normocephalic and atraumatic. Tacky mucous membranes. No posterior oropharynx erythema. EYES: No conjunctival icterus, injection, or pallor. PERRL. NECK: No meningeal signs. RESP: Able to speak in full sentences. Normal respiratory effort. CTAB. CARDIO: Tachycardic rate. Regular rhythm. 2+ DP and radial pulses bilaterally. GI: Nondistended. No tenderness to palpation. Soft. : No CVA tenderness to palpation. SKIN: No rashes or lesions noted on exposed skin. NEURO: Oriented x3. Moves all extremities. Mildly tremulous. EXTREM/MSK/BACK: No pedal edema. PSYCH: Normal affect. Course Vital Signs Vital signs: V
--- NOTE | 2023-11-30 02:52 | ECG_ITS ---
SEE SCANNED COPY FOR CONFIRMED REPORT MTDD
[2023-11-30] MEDS: ceFAZolin 1 GM/NS 50 ML 1 GM/50 ML BAG IVPB ×3 (03:02→20:39)
[2023-11-30] MEDS: PHENobarbital (*CRX) 100 MG TABLET PO (03:02)
[2023-11-30] MEDS: chlordiazePOXIDE (*CRX) 25 MG CAPSULE 50 MG PO (03:16)
[2023-11-30] MEDS: SODIUM CHLORIDE 0.9% IV 1,000 ML 999 ML IV CONT ×2 (03:17→04:52)
--- NOTE | 2023-11-30 03:56 | PC.NURSE ---
Patient is a tough stick, has been stuck 7 times for attempted IV access,unsuccessful. Unable to obtain blood work or IV. salvage mechanic and ERP notified.
--- NOTE | 2023-11-30 04:29 | PC.NURSE ---
ERP placed US IV.
[2023-11-30 04:40] LABS: Basophils Absolute Auto 0.1 K/mm3 (0.0-0.1); Basophils Percent Auto 0.5 % (0.2-1.2); Eosinophils Percent Auto 0.1 % (0-4.4); Hematocrit 40.5 % (42.0-52.0); Hemoglobin 14.1 g/dL (14.0-18.0); Immature Granulocyte Absolute 0.03 K/mm3 (0.00-0.031); Immature Granulocyte Percent A 0.3 % (0-0.5); Lymphocytes Absolute Auto 1.66 K/mm3 (0.9-3.2); Mean Corpuscular HGB Conc 34.8 g/dl (32-36); Mean Corpuscular Hemoglobin 35.4 pg (26-34); Mean Corpuscular Volume 101.8 fl (80-100); Mean Platelet Volume 10.5 fl (7.4-10.4); Monocytes Absolute Auto 0.7 K/mm3 (0.1-0.6); Neutrophils Absolute Auto 9.4 K/mm3 (1.3-6.7); Neutrophils Percent Auto 79.1 % (45.5-73.1); Platelet Count Result 319 k/mm3 (150-375); Red Blood Count 3.98 M/mm3 (4.6-6.20); Red Cell Distribution Width 13.8 % (11.5-14.5); White Blood Count 11.9 K/mm3 (4.5-10.0)
[2023-11-30 04:50] LABS: INR 1.1; Prothrombin Time 14.6 Seconds (11.1-14.7)
[2023-11-30 04:51] LABS: Partial Thromboplastin Time 28.2 Seconds (22.3-36.8)
[2023-11-30 04:52] LABS: Lactic Acid Reflex 2.7 mmol/L (0.7-2.0)
[2023-11-30 04:53] LABS: Acetaminophen < 10 ug/mL (10-30); Ethanol < 10 mg/dL (<10); Lipase 174 U/L (23-300); Magnesium 1.2 mg/dL (1.6-2.3)
[2023-11-30 04:59] LABS: Alanine Aminotransferase 49 U/L (6-50); Albumin Level 3.5 g/dL (3.5-5.1); Alkaline Phosphatase 414 U/L (38-126); Anion Gap 5 mmol/L (4-12); Aspartate Amino Transferase 89 U/L (17-59); Bilirubin,Total 1.4 mg/dL (0.2-1.3); Blood Urea Nitrogen 15 mg/dL (9-20); Calcium 8.7 mg/dL (8.4-10.2); Carbon Dioxide 29 mmol/L (22-30); Chloride 99 mmol/L (98-107); Estimated CRCL calculation 113 ml/min; Estimated Glomerular Filt Rate > 60; Glucose 108 mg/dL (65-110); Potassium 4.3 mmol/L (3.4-5.0); Salicylate < 1.0 mg/dL (2-20); Sodium 133 mmol/L (137-145)
--- NOTE | 2023-11-30 05:00 | PC.NURSE ---
Patient aware of need for urine sample. Patient attempted to provide one, unsuccessful. Patient a/ox4, offered a straight cath, patient refused.
[2023-11-30 05:08] LABS: Troponin I 0.103 ng/mL (0.000-0.034)
--- NOTE | 2023-11-30 05:25 | ECG_ITS ---
SEE SCANNED COPY FOR CONFIRMED REPORT MTDD
[2023-11-30] MEDS: MAGNESIUM SULF 2 GM/WATER 50ML 2 GM/50 ML BAG IVPB (05:30)
[2023-11-30 06:13] LABS: Amphetamine Screen Urine Negative (Negative); Barbiturate Screen Urine Positive (Negative); Benzodiazepines Screen Urine Positive (Negative); Cannabinoid Screen Urine Negative (Negative); Cocaine Screen Urine Negative (Negative); Methadone Screen Urine Negative (Negative); Opiate Screen Urine Positive (Negative); Phencyclidine Screen Urine Negative (Negative)
[2023-11-30 06:16] LABS: Troponin I 0.081 ng/mL (0.000-0.034)
--- NOTE | 2023-11-30 06:22 | ADMGEN ---
This patient, Christiano Wright, was admitted to IMU Room 231-01 @ 0620. Patient/family oriented to hospital policies and general routines including ID bracelet, bed and alarms, visiting hours, pain management, procedures, bathroom and other care routines, personal items, smoking policy, room service/diet, and visiting hours. Information on how to activate the Rapid Response Team has been discussed. Patient/Family are encouraged to report perceived risks to care and to ask questions if they do not understand what they are told or what they should do.
[2023-11-30] MEDS: MAGNESIUM SULF 4 GM/WATER100ML 4 GM/100 ML BAG IVPB (07:16)
[2023-11-30 07:33] LABS: Reflex Lactic Acid Yes or No Add Lactic
[2023-11-30] MEDS: THIAMINE HCL 100 MG TABLET PO (09:18)
[2023-11-30] MEDS: LORazepam INJ (*CRX) 2 MG/ML VIAL 1 MG IV PUSH (09:18)
[2023-11-30] MEDS: FOLIC ACID 1 MG TABLET PO (09:19)
[2023-11-30 10:56] LABS: Lactic Acid 1.8 mmol/L (0.7-2.0)
[2023-11-30 11:20] LABS: Troponin I 0.066 ng/mL (0.000-0.034)
--- NOTE | 2023-11-30 11:36 | PM.IMCN ---
Assessment and Plan Assessment and plan (1) Alcohol use disorder: Code(s): F10.90 - Alcohol use, unspecified, uncomplicated Status: Acute Assessment and Plan: Refer for inpatient program after detox completed continue with [facility] protocol chlordiazepoxide and p.r.n. lorazepam in the meantime (2) Opioid use with opioid-induced disorder: Code(s): F11.99 - Opioid use, unspecified with unspecified opioid-induced disorder Status: Acute Assessment and Plan: he claims to have used Suboxone yesterday but unfortunately urine drug screen does not include buprenorphine here recommend he complete detox from alcohol and consider restarting Suboxone at his previous dose of 8-2 b.i.d once alcohol detox is completed in 3-4 days, sooner if he is alert and showing severe signs of opioid withdrawal (shakes, aches, sweats, nausea, diarrhea, agitation) with COWS score over 10 (3) Alcohol withdrawal: Qualifiers: Complication of substance-induced condition: uncomplicated Qualified Code(s): F10.930 - Alcohol use, unspecified with withdrawal, uncomplicated Code(s): F10.939 - Alcohol use, unspecified with withdrawal, unspecified Status: Acute Assessment and Plan: as above (4) Cellulitis of right lower leg: Code(s): L03.115 - Cellulitis of right lower limb Status: Acute Assessment and Plan: continue cefazolin as ordered (5) Iron deficiency anemia: Qualifiers: Iron deficiency anemia type: other iron deficiency Qualified Code(s): D50.8 - Other iron deficiency anemias Code(s): D50.9 - Iron deficiency anemia, unspecified Status: Acute Assessment and Plan: followed by his primary care physician HPI Date of Consult Consult date: 11/30/23 Requesting Physician: Mohamud Alejandro MD Primary Care Provider: Julian Lucero MD Consult Narrative Narrative: Christiano Wright is a 48 year old male With a history of opioid use disorder and alcohol use disorder. He has had issues for several years. He is unable to quantify use of either. He is currently very sedated after receiving phenobarbital once, chlordiazepoxide, and lorazepam. History was obtained somewhat from the patient from chart review and from discussion with his staff nurse. He admits to participating in medication assisted recovery at [facility] for about the last 1.5 years. He is uncertain whom he sees there and when his last visit was. Currently he denied sweats nausea shakes or pain. He wishes to continue participating in recovery services and will consider and extended inpatient program for his substance use disorders. Review of Systems Review of Systems: Although he denied any symptoms and review of systems he is very drowsy and veracity of answers is dubious. 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
[2023-11-30 12:18] LABS: Folic Acid 10.6 ng/mL (2.76->20)
[2023-11-30] MEDS: SODIUM CHLORIDE 0.9% IV 1,000 ML 125 ML IV CONT (12:42)
[2023-11-30] MEDS: THIAMINE 500 MG/NS 100 ML 500 MG/100 ML BAG 200 MG IVPB (12:42)
[2023-11-30] MEDS: chlordiazePOXIDE (*CRX) 25 MG CAPSULE PO ×3 (12:43→23:24)
--- NOTE | 2023-11-30 13:21 | PM.IMHP ---
H&P: HPI History of Present Illness Date/Time: 11/30/23 13:21 Chief Complaint: patient brought to the ED for evaluation by police for evaluation of poly drug abuse and multiple leg ulcers Narrative: Very unfortunate 48 years old with the chronic history of polydrug abuse with nicotine, alcohol, opioids, fentanyl and heroine who has restraining orders against him by his mother. He was repeated going to his mother's home. Police was called patient, and patient was brought to the ER for evaluation with bilateral leg wounds secondary to injecting IV drugs. He stated that he was at his mom's house to get his car so that he could go to [facility] for treatment of his alcohol use disorder. He has been seen in the ER few times over the last week. He was diagnosed with sepsis due to cellulitis and right leg wound and received IV antibiotics and septic dose of fluids. He received phenobarbital, chlordiazepoxide and lorazepam and started on CIWA protocol. He is being admitted for close monitoring, medical management, IV antibiotics for leg wounds and Addiction Medicine consult and evaluation. Review of Systems Review of Systems: 14 systems were reviewed with pertinent positives and negatives per HPI. Except as documented in the HPI/progress notes, all other systems were reviewed and are negative. 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 Open wound Personal history of nicotine dependence Polydrug abuse, continuous Poor dentition Tobacco abuse Surgical History Surgical History H/O vascular surgery 2020- lower R ext Family History Family History Father Acute myocardial infarction Alcoholism Social History Social History Smoking packs per day: 3 Smoking cigarettes per day: 60.0 Years smoked: 30 Smoking pack-years: 90.00 Smoking status: Current every day smoker Tobacco type: cigarettes Second hand tobacco smoke exposure: Yes Alcohol intake: current Drinks per week: 300 Substance use: current Substance use type: opiates Other substance usage details: injection Last use: 11/29/2023 Do You Feel Safe in your Home?: Yes Lack of Transportation: No Lack of Food: Never True Current Housing: I Do Not Have Housing Concerned About Future Housing: YES Difficulty Paying Gas/Electric Bills: YES Difficulty Paying for Meds: YES Currently Unemployed: YES Education: Associate Degree Difficulty w/ Childcare or Family Care: No Living arrangements: with family Additional living arrangements comments: Unable to return to his mother's home Occupation/Education: unemployed Gender identity (if verbalized by the patient): Male Spiritual care concerns: No Meds Home Medications and Allergies Home Medications Medication Instructions Recorded Confirmed Type buprenorphine 8 mg-naloxone 2 mg 1 film buccal BID 5 days #10 ea 10/20/23 Rx sublingual film (Suboxone) chlordiazepoxide HCl 25 mg capsule 25 mg PO Q6-12H PRN alcohol 10/20/23 Rx withdrawal #15 caps naloxone 4 mg/actuation nasal 4 mg intranasal Q2-3M PRN opioid 10/20/23 Rx spray (Narcan) overdose #2 ea buprenorphine 8 mg-naloxone 2 mg 2 film buccal DAILY 3 days #6 ea 11/29/23 Rx sublingual film cephalexin 500 mg capsule 500 mg PO Q6H 7 days #28 caps 11/29/23 Rx Allergies Allergy/AdvReac Type Severity Reaction Status Date / Time iodine Allergy Intermediate Rash Verified
[2023-11-30 16:44] LABS: Iron 200 ug/dL (49-181)
[2023-11-30 16:53] LABS: Percent Iron Saturation 99 % (20-50)
[2023-11-30] MEDS: THERAPEUTIC MULTIVITAMINS/MINERALS TAB (*BKC) 1 TABLET PO (17:19)
[2023-11-30] MEDS: VANCOMYCIN 1,250 MG/NS 250 ML 1,250 MG/250 ML BAG 166.67 MG IVPB (17:19)
[2023-11-30] MEDS: SODIUM CHLORIDE 0.9% IV 1,000 ML 100 ML IV CONT (17:28)
[2023-11-30] MEDS: NICOTINE (*PBKC) 21 MG PATCH 1 PATCH TRANSDERM (21:14)
[2023-12-01] VITALS (15 sets, daily range): BP systolic 136–165; BP diastolic 96–112; PULSE 89–101; RESP 18–20; TEMP 36.6–37.1; O2SAT 97–99
[2023-12-01] MEDS: SODIUM CHLORIDE 0.9% IV 1,000 ML 100 ML IV CONT ×2 (03:04→20:29)
[2023-12-01] MEDS: ceFAZolin 1 GM/NS 50 ML 1 GM/50 ML BAG IVPB ×3 (03:04→20:30)
[2023-12-01] MEDS: VANCOMYCIN 1,250 MG/NS 250 ML 1,250 MG/250 ML BAG 166.67 MG IVPB ×2 (03:05→17:01)
[2023-12-01] MEDS: ACETAMINOPHEN 325 MG TABLET 650 MG PO (03:05)
[2023-12-01 04:49] LABS: Basophils Percent Auto 0.4 % (0.2-1.2); Eosinophils Absolute Auto 0.2 K/mm3 (0-0.3); Eosinophils Percent Auto 1.8 % (0-4.4); Hematocrit 37.2 % (42.0-52.0); Hemoglobin 12.9 g/dL (14.0-18.0); Immature Granulocyte Absolute 0.03 K/mm3 (0.00-0.031); Immature Granulocyte Percent A 0.3 % (0-0.5); Lymphocytes Absolute Auto 1.81 K/mm3 (0.9-3.2); Lymphocytes Percent Auto 19.9 % (18.3-44.2); Mean Corpuscular HGB Conc 34.7 g/dl (32-36); Mean Corpuscular Hemoglobin 35.6 pg (26-34); Mean Corpuscular Volume 102.8 fl (80-100); Mean Platelet Volume 10.6 fl (7.4-10.4); Monocytes Absolute Auto 0.5 K/mm3 (0.1-0.6); Monocytes Percent Auto 5.8 % (2.6-8.5); Neutrophils Absolute Auto 6.5 K/mm3 (1.3-6.7); Neutrophils Percent Auto 71.8 % (45.5-73.1); Platelet Count Result 266 k/mm3 (150-375); Red Blood Count 3.62 M/mm3 (4.6-6.20); Red Cell Distribution Width 13.5 % (11.5-14.5); White Blood Count 9.1 K/mm3 (4.5-10.0)
[2023-12-01 05:07] LABS: Estimated CRCL calculation 132 ml/min; Estimated Glomerular Filt Rate > 60
[2023-12-01] MEDS: chlordiazePOXIDE (*CRX) 25 MG CAPSULE PO ×4 (05:11→23:51)
[2023-12-01 05:12] LABS: Alanine Aminotransferase 34 U/L (6-50); Albumin Level 2.9 g/dL (3.5-5.1); Alkaline Phosphatase 326 U/L (38-126); Anion Gap 2 mmol/L (4-12); Aspartate Amino Transferase 52 U/L (17-59); Bilirubin,Total 1.3 mg/dL (0.2-1.3); Blood Urea Nitrogen 7 mg/dL (9-20); Calcium 7.7 mg/dL (8.4-10.2); Carbon Dioxide 24 mmol/L (22-30); Chloride 103 mmol/L (98-107); Estimated CRCL calculation 132 ml/min; Estimated Glomerular Filt Rate > 60; Glucose 109 mg/dL (65-110); Magnesium 1.7 mg/dL (1.6-2.3); Potassium 3.2 mmol/L (3.4-5.0); Sodium 129 mmol/L (137-145)
--- NOTE | 2023-12-01 07:39 | PC.NURSE ---
Notified Dr. Alejandro about patients lab values this morning. Potassium 3.2, Sodium 129. Verbal orders for 20 mEq IV. Clarified orders for both IV fluids. Continue both fluids at this time.
[2023-12-01] MEDS: THIAMINE HCL 100 MG TABLET PO (08:34)
[2023-12-01] MEDS: NICOTINE (*PBKC) 21 MG PATCH 1 PATCH TRANSDERM (08:34)
[2023-12-01] MEDS: THERAPEUTIC MULTIVITAMINS/MINERALS TAB (*BKC) 1 TABLET PO (08:34)
[2023-12-01] MEDS: ENOXAPARIN 40 MG/0.4 ML SYRINGE SUB-Q (08:34)
[2023-12-01] MEDS: FOLIC ACID 1 MG TABLET PO (08:34)
[2023-12-01 09:48] LABS: Troponin I 0.055 ng/mL (0.000-0.034)
[2023-12-01] MEDS: POTASSIUM CHLORIDE 20 MEQ ER TABLET 40 MEQ PO (11:04)
[2023-12-01] MEDS: KCL 20MEQ/0.9% SOD CHL 1,000 ML 100 ML IV CONT (11:08)
--- NOTE | 2023-12-01 18:34 | PC.NURSE ---
Pt offered this RN money to get him fentanyl. Educated patient on why he came to the hospital and how many people he has that are helping him. Educated him on his resources for outpatient treatment.
--- NOTE | 2023-12-01 18:46 | PM.IMPN ---
Progress Note: A&P Assessment and Plan (1) Polydrug abuse, continuous: Code(s): F19.10 - Other psychoactive substance abuse, uncomplicated Status: Acute (2) Alcohol use disorder: Code(s): F10.90 - Alcohol use, unspecified, uncomplicated Status: Acute (3) Opioid use with opioid-induced disorder: Code(s): F11.99 - Opioid use, unspecified with unspecified opioid-induced disorder Status: Acute (4) Cellulitis of right lower leg: Code(s): L03.115 - Cellulitis of right lower limb Status: Acute (5) Opioid abuse: Code(s): F11.10 - Opioid abuse, uncomplicated Status: Acute (6) Sepsis: Qualifiers: Sepsis acute organ dysfunction status: unspecified Sepsis type: sepsis due to unspecified organism Qualified Code(s): A41.9 - Sepsis, unspecified organism Code(s): A41.9 - Sepsis, unspecified organism Status: Acute (7) Alcohol withdrawal: Qualifiers: Complication of substance-induced condition: uncomplicated Qualified Code(s): F10.930 - Alcohol use, unspecified with withdrawal, uncomplicated Code(s): F10.939 - Alcohol use, unspecified with withdrawal, unspecified Status: Acute (8) Elevated troponin: Code(s): R79.89 - Other specified abnormal findings of blood chemistry Status: Acute (9) Dehydration: Code(s): E86.0 - Dehydration Status: Acute (10) Hypomagnesemia: Code(s): E83.42 - Hypomagnesemia Status: Acute (11) Tobacco abuse: Code(s): Z72.0 - Tobacco use Status: Acute (12) Iron deficiency anemia: Qualifiers: Iron deficiency anemia type: other iron deficiency Qualified Code(s): D50.8 - Other iron deficiency anemias Code(s): D50.9 - Iron deficiency anemia, unspecified Status: Acute (13) Poor dentition: Code(s): K08.9 - Disorder of teeth and supporting structures, unspecified Status: Acute (14) Personal history of nicotine dependence: Code(s): Z87.891 - Personal history of nicotine dependence Status: Acute (15) Open wound: Code(s): T14.8XXA - Other injury of unspecified body region, initial encounter Status: Acute (16) Drug addiction: Code(s): F19.20 - Other psychoactive substance dependence, uncomplicated Status: Acute (17) H/O vascular surgery: Code(s): Z98.890 - Other specified postprocedural states Status: Acute (18) Sepsis due to cellulitis: Code(s): L03.90 - Cellulitis, unspecified; A41.9 - Sepsis, unspecified organism Status: Acute Plan Admit patient to IMU under full inpatient status Patient admitted with the sepsis secondary to right lower leg and cellulitis as well as polydrug abuse Patient received septic doses of IV fluids in the ER Patient received IV Ancef in the ER which will continue on the floor Added IV vancomycin to patient's antibiotic regimen with pharmacy to dose based on renal functions Wound care consult given for evaluation and treatment recommendations regarding bilateral lower leg ulcers Leukocytosis has resolved with aggressive antibiotic management Continue with normal saline at 100 cc/hour IV potassium supplementation ordered for mild hypokalemia 3.2 Patient's lactic acid is downtrending from 4.1 -> 2.7 -> 1.8 today which has now resolved Patient had received aggressive IV magnesium replacement for hypomagnesemia of 1.2 which is now normalized Patient has mildly elevated troponins which are slowly downtrending, likely secondary to myocardial demand secondary to polydrug abuse and to sepsis due to cellulitis Patient does not complain of any chest pain Addiction medicine consult given for evaluation and further treatment recommendations Patient given IV phenobarbital, chlordiazepoxide and lorazepam in the ER and started on CIWA protocol Continue with CIWA protocol in the hospital Patient ordered IV banana bag daily Ordered oral multi mult
[2023-12-02] VITALS (17 sets, daily range): BP systolic 136–156; BP diastolic 99–117; PULSE 72–114; RESP 16–19; TEMP 36.2–37.1; O2SAT 96–100
[2023-12-02] MEDS: ceFAZolin 1 GM/NS 50 ML 1 GM/50 ML BAG IVPB ×3 (03:25→18:06)
[2023-12-02 04:03] LABS: Basophils Absolute Auto 0.1 K/mm3 (0.0-0.1); Basophils Percent Auto 0.7 % (0.2-1.2); Eosinophils Absolute Auto 0.2 K/mm3 (0-0.3); Eosinophils Percent Auto 2.3 % (0-4.4); Hematocrit 43.3 % (42.0-52.0); Hemoglobin 14.6 g/dL (14.0-18.0); Immature Granulocyte Absolute 0.03 K/mm3 (0.00-0.031); Immature Granulocyte Percent A 0.3 % (0-0.5); Lymphocytes Absolute Auto 2.39 K/mm3 (0.9-3.2); Lymphocytes Percent Auto 23.5 % (18.3-44.2); Mean Corpuscular HGB Conc 33.7 g/dl (32-36); Mean Corpuscular Hemoglobin 35.4 pg (26-34); Mean Corpuscular Volume 105.1 fl (80-100); Mean Platelet Volume 10.6 fl (7.4-10.4); Monocytes Absolute Auto 0.6 K/mm3 (0.1-0.6); Monocytes Percent Auto 5.6 % (2.6-8.5); Neutrophils Absolute Auto 6.9 K/mm3 (1.3-6.7); Neutrophils Percent Auto 67.6 % (45.5-73.1); Platelet Count Result 286 k/mm3 (150-375); Red Blood Count 4.12 M/mm3 (4.6-6.20); Red Cell Distribution Width 13.2 % (11.5-14.5); White Blood Count 10.2 K/mm3 (4.5-10.0)
[2023-12-02 04:14] LABS: Alanine Aminotransferase 29 U/L (6-50); Albumin Level 3.5 g/dL (3.5-5.1); Alkaline Phosphatase 333 U/L (38-126); Anion Gap 7 mmol/L (4-12); Aspartate Amino Transferase 45 U/L (17-59); Bilirubin,Total 1.1 mg/dL (0.2-1.3); Blood Urea Nitrogen 8 mg/dL (9-20); Carbon Dioxide 21 mmol/L (22-30); Chloride 105 mmol/L (98-107); Estimated CRCL calculation 112 ml/min; Estimated Glomerular Filt Rate > 60; Glucose 99 mg/dL (65-110); Potassium 3.5 mmol/L (3.4-5.0); Sodium 133 mmol/L (137-145)
[2023-12-02 04:22] LABS: Hypochromasia 1+; Platelet Estimate Adequate (Adequate)
[2023-12-02 04:23] LABS: Anisocytosis 1+; Schistocytes None Seen
[2023-12-02 04:33] LABS: Vancomycin Trough 16.9 ug/mL (10.0-20.0)
[2023-12-02] MEDS: chlordiazePOXIDE (*CRX) 25 MG CAPSULE PO ×3 (06:10→18:05)
[2023-12-02] MEDS: SODIUM CHLORIDE 0.9% IV 1,000 ML 100 ML IV CONT (06:10)
[2023-12-02 09:27] LABS: Troponin I 0.045 ng/mL (0.000-0.034)
[2023-12-02] MEDS: THIAMINE HCL 100 MG TABLET PO (09:36)
[2023-12-02] MEDS: NICOTINE (*PBKC) 21 MG PATCH 1 PATCH TRANSDERM (09:36)
[2023-12-02] MEDS: FOLIC ACID 1 MG TABLET PO (09:36)
[2023-12-02] MEDS: ENOXAPARIN 40 MG/0.4 ML SYRINGE SUB-Q (09:36)
[2023-12-02] MEDS: THERAPEUTIC MULTIVITAMINS/MINERALS TAB (*BKC) 1 TABLET PO (09:36)
[2023-12-02] MEDS: VANCOMYCIN 1,000 MG/NS 250 ML 1,000 MG/250 ML BAG 250 MG IVPB ×2 (09:37→21:19)
--- NOTE | 2023-12-02 18:54 | PM.IMPN ---
Progress Note: A&P Assessment and Plan (1) Polydrug abuse, continuous: Code(s): F19.10 - Other psychoactive substance abuse, uncomplicated Status: Acute (2) Alcohol use disorder: Code(s): F10.90 - Alcohol use, unspecified, uncomplicated Status: Acute (3) Opioid use with opioid-induced disorder: Code(s): F11.99 - Opioid use, unspecified with unspecified opioid-induced disorder Status: Acute (4) Cellulitis of right lower leg: Code(s): L03.115 - Cellulitis of right lower limb Status: Acute (5) Opioid abuse: Code(s): F11.10 - Opioid abuse, uncomplicated Status: Acute (6) Sepsis: Qualifiers: Sepsis acute organ dysfunction status: unspecified Sepsis type: sepsis due to unspecified organism Qualified Code(s): A41.9 - Sepsis, unspecified organism Code(s): A41.9 - Sepsis, unspecified organism Status: Acute (7) Alcohol withdrawal: Qualifiers: Complication of substance-induced condition: uncomplicated Qualified Code(s): F10.930 - Alcohol use, unspecified with withdrawal, uncomplicated Code(s): F10.939 - Alcohol use, unspecified with withdrawal, unspecified Status: Acute (8) Elevated troponin: Code(s): R79.89 - Other specified abnormal findings of blood chemistry Status: Acute (9) Dehydration: Code(s): E86.0 - Dehydration Status: Acute (10) Hypomagnesemia: Code(s): E83.42 - Hypomagnesemia Status: Acute (11) Tobacco abuse: Code(s): Z72.0 - Tobacco use Status: Acute (12) Iron deficiency anemia: Qualifiers: Iron deficiency anemia type: other iron deficiency Qualified Code(s): D50.8 - Other iron deficiency anemias Code(s): D50.9 - Iron deficiency anemia, unspecified Status: Acute (13) Poor dentition: Code(s): K08.9 - Disorder of teeth and supporting structures, unspecified Status: Acute (14) Personal history of nicotine dependence: Code(s): Z87.891 - Personal history of nicotine dependence Status: Acute (15) Open wound: Code(s): T14.8XXA - Other injury of unspecified body region, initial encounter Status: Acute (16) Drug addiction: Code(s): F19.20 - Other psychoactive substance dependence, uncomplicated Status: Acute (17) H/O vascular surgery: Code(s): Z98.890 - Other specified postprocedural states Status: Acute (18) Sepsis due to cellulitis: Code(s): L03.90 - Cellulitis, unspecified; A41.9 - Sepsis, unspecified organism Status: Acute Plan Admit patient to IMU under full inpatient status Patient admitted with the sepsis secondary to right lower leg and cellulitis as well as polydrug abuse Patient received septic doses of IV fluids in the ER Patient received IV Ancef in the ER which will continue on the floor Added IV vancomycin to patient's antibiotic regimen with pharmacy to dose based on renal functions Wound care consult given for evaluation and treatment recommendations regarding bilateral lower leg ulcers Leukocytosis has resolved with aggressive antibiotic management DC IV fluids as patient has good oral intake Potassium level is normal after replacement Patient's lactic acid is downtrending from 4.1 -> 2.7 -> 1.8 today which has now resolved Patient had received aggressive IV magnesium replacement for hypomagnesemia of 1.2 which is now normalized Patient has mildly elevated troponins which are slowly downtrending, likely secondary to myocardial demand secondary to polydrug abuse and to sepsis due to cellulitis Patient does not complain of any chest pain Addiction medicine consult given for evaluation and further treatment recommendations Patient given IV phenobarbital, chlordiazepoxide and lorazepam in the ER and started on CIWA protocol Continue with CIWA protocol in the hospital Patient ordered IV banana bag daily Ordered oral multi multivitamins daily
[2023-12-03] VITALS: BP 141/103; PULSE 97
[2023-12-03] MEDS: chlordiazePOXIDE (*CRX) 25 MG CAPSULE PO ×4 (00:04→17:07)
[2023-12-03 04:00] VITALS: BP 141/103; PULSE 109
[2023-12-03 05:04] LABS: Basophils Percent Auto 0.5 % (0.2-1.2); Eosinophils Absolute Auto 0.1 K/mm3 (0-0.3); Eosinophils Percent Auto 1.8 % (0-4.4); Hemoglobin 13.5 g/dL (14.0-18.0); Immature Granulocyte Absolute 0.03 K/mm3 (0.00-0.031); Immature Granulocyte Percent A 0.4 % (0-0.5); Lymphocytes Absolute Auto 1.94 K/mm3 (0.9-3.2); Lymphocytes Percent Auto 25.5 % (18.3-44.2); Mean Corpuscular HGB Conc 33.8 g/dl (32-36); Mean Corpuscular Volume 103.6 fl (80-100); Mean Platelet Volume 11.2 fl (7.4-10.4); Monocytes Absolute Auto 0.5 K/mm3 (0.1-0.6); Monocytes Percent Auto 6.8 % (2.6-8.5); Neutrophils Absolute Auto 4.9 K/mm3 (1.3-6.7); Platelet Count Result 249 k/mm3 (150-375); Red Blood Count 3.86 M/mm3 (4.6-6.20); Red Cell Distribution Width 13.5 % (11.5-14.5); White Blood Count 7.6 K/mm3 (4.5-10.0)
[2023-12-03] MEDS: ceFAZolin 1 GM/NS 50 ML 1 GM/50 ML BAG IVPB ×3 (05:08→18:02)
[2023-12-03 05:10] LABS: Alanine Aminotransferase 20 U/L (6-50); Alkaline Phosphatase 256 U/L (38-126); Anion Gap 4 mmol/L (4-12); Aspartate Amino Transferase 35 U/L (17-59); Bilirubin,Total 0.9 mg/dL (0.2-1.3); Blood Urea Nitrogen 10 mg/dL (9-20); Carbon Dioxide 21 mmol/L (22-30); Chloride 106 mmol/L (98-107); Estimated CRCL calculation 112 ml/min; Estimated Glomerular Filt Rate > 60; Glucose 121 mg/dL (65-110); Potassium 3.1 mmol/L (3.4-5.0); Sodium 131 mmol/L (137-145)
[2023-12-03 07:30] VITALS: BP 148/100; PULSE 101; RESP 19; TEMP 37.1; O2SAT 96
[2023-12-03 08:00] VITALS: PULSE 102
[2023-12-03] MEDS: VANCOMYCIN 1,000 MG/NS 250 ML 1,000 MG/250 ML BAG 250 MG IVPB (08:09)
[2023-12-03] MEDS: NICOTINE (*PBKC) 21 MG PATCH 1 PATCH TRANSDERM (08:09)
[2023-12-03] MEDS: ENOXAPARIN 40 MG/0.4 ML SYRINGE SUB-Q (08:09)
[2023-12-03] MEDS: THIAMINE HCL 100 MG TABLET PO (08:09)
[2023-12-03] MEDS: FOLIC ACID 1 MG TABLET PO (08:09)
[2023-12-03] MEDS: THERAPEUTIC MULTIVITAMINS/MINERALS TAB (*BKC) 1 TABLET PO (08:09)
[2023-12-03 10:02] VITALS: PULSE 107
[2023-12-03] MEDS: METOPROLOL TARTRATE 25 MG TABLET PO (10:02)
[2023-12-03] MEDS: SODIUM BICARBONATE 8.4% 50 MEQ/50 ML SYRINGE 63 MEQ IV PUSH (10:03)
[2023-12-03] MEDS: POTASSIUM CHLORIDE 20 MEQ ER TABLET 40 MEQ PO (11:05)
[2023-12-03] MEDS: KCL 40 MEQ/0.9% SOD CHL 1,000 ML 100 ML IV CONT (11:06)
[2023-12-03 16:00] VITALS: BP 143/104; PULSE 98; RESP 18; TEMP 36.8; O2SAT 98
--- NOTE | 2023-12-03 18:36 | P.PNIM_ITS ---
Progress Note: A&P Assessment and Plan (1) Polydrug abuse, continuous: Code(s): F19.10 - Other psychoactive substance abuse, uncomplicated Status: Acute (2) Alcohol use disorder: Code(s): F10.90 - Alcohol use, unspecified, uncomplicated Status: Acute (3) Opioid use with opioid-induced disorder: Code(s): F11.99 - Opioid use, unspecified with unspecified opioid-induced disorder Status: Acute (4) Cellulitis of right lower leg: Code(s): L03.115 - Cellulitis of right lower limb Status: Acute (5) Opioid abuse: Code(s): F11.10 - Opioid abuse, uncomplicated Status: Acute (6) Sepsis: Qualifiers: Sepsis acute organ dysfunction status: unspecified Sepsis type: sepsis due to unspecified organism Qualified Code(s): A41.9 - Sepsis, unspecified organism Code(s): A41.9 - Sepsis, unspecified organism Status: Acute (7) Alcohol withdrawal: Qualifiers: Complication of substance-induced condition: uncomplicated Qualified Code(s): F10.930 - Alcohol use, unspecified with withdrawal, uncomplicated Code(s): F10.939 - Alcohol use, unspecified with withdrawal, unspecified Status: Acute (8) Elevated troponin: Code(s): R79.89 - Other specified abnormal findings of blood chemistry Status: Acute (9) Dehydration: Code(s): E86.0 - Dehydration Status: Acute (10) Hypomagnesemia: Code(s): E83.42 - Hypomagnesemia Status: Acute (11) Tobacco abuse: Code(s): Z72.0 - Tobacco use Status: Acute (12) Iron deficiency anemia: Qualifiers: Iron deficiency anemia type: other iron deficiency Qualified Code(s): D50.8 - Other iron deficiency anemias Code(s): D50.9 - Iron deficiency anemia, unspecified Status: Acute (13) Poor dentition: Code(s): K08.9 - Disorder of teeth and supporting structures, unspecified Status: Acute (14) Personal history of nicotine dependence: Code(s): Z87.891 - Personal history of nicotine dependence Status: Acute (15) Open wound: Code(s): T14.8XXA - Other injury of unspecified body region, initial encounter Status: Acute (16) Drug addiction: Code(s): F19.20 - Other psychoactive substance dependence, uncomplicated Status: Acute (17) H/O vascular surgery: Code(s): Z98.890 - Other specified postprocedural states Status: Acute (18) Sepsis due to cellulitis: Code(s): L03.90 - Cellulitis, unspecified; A41.9 - Sepsis, unspecified organism Status: Acute Plan Admit patient to IMU under full inpatient status Patient admitted with the sepsis secondary to right lower leg and cellulitis as well as polydrug abuse Patient received septic doses of IV fluids in the ER Patient received IV Ancef in the ER which will continue on the floor Added IV vancomycin to patient's antibiotic regimen with pharmacy to dose based on renal functions Wound care consult given for evaluation and treatment recommendations regarding bilateral lower leg ulcers Leukocytosis has resolved with aggressive antibiotic management DC IV fluids as patient has good oral intake Potassium level is normal after replacement Patient's lactic acid is downtrending from 4.1 -> 2.7 -> 1.8 which has now resolved Patient had received aggressive IV magnesium replacement for hypomagnesemia of 1.2 which is now normalized Patient has mildly elevated troponins which are slowly downtrending, likely secondary to myocardial demand secondary to po
--- NOTE | 2023-12-03 18:42 | PM.EVENT ---
Event Note Event Note Event Note: PATIENT LEFT AGAINST MEDICAL ADVICE (Discharge summary): Please note patient left against medical advice and was NOT formally discharged from the hospital HOSPITAL COURSE: H&P: HPI History of Present Illness Date/Time: 11/30/23? 13:21 Chief Complaint: patient brought to the ED for evaluation by police for evaluation of poly drug abuse and multiple leg ulcers Narrative: Very unfortunate 48 years old with the chronic history of polydrug abuse with nicotine, alcohol, opioids, fentanyl and heroine who has restraining orders against him by his mother.? He was repeated going to his mother's home. Police was called patient, and patient was brought to the ER for evaluation with bilateral leg wounds secondary to injecting IV drugs. He stated that he was at his mom's house to get his car so that he could go to [facility] for treatment of his alcohol use disorder. He has been seen in the ER few times over the last week.? He was diagnosed with sepsis due to cellulitis and right leg wound and received IV antibiotics and septic dose of fluids.? He received phenobarbital, chlordiazepoxide and lorazepam and started on CIWA protocol.? He is being admitted for close monitoring, medical management, IV antibiotics for leg wounds and Addiction Medicine consult and evaluation. 12/01/2023: Patient seen and evaluated at bedside.? Still feels weak and tired yet improved since yesterday.? Spoke with patient in detail regarding management plan for his multiple medical issues and strongly urged patient not to sign out against medical advice. 12/02/2023: Patient lying in bed during my morning rounds.? Feels weak and tired yet slowly improving.? Interacting well with staff.? Continues to ask about smoking and vaping. 12/03/2023: Patient c continues to improve slowly.? Low-dose Oral metoprolol added for tachycardia.? Continue with IV antibiotics for leg ulcers. He continues to ask as myself and the nursing staff about smoking and vaping which we have explained him multiple times this is against hospital policy.? He wants to leave AMA. PLAN: 11/30/2023 till 12/03/2023: Assessment and Plan (1) Polydrug abuse, continuous: ?Code(s): F19.10 - Other psychoactive substance abuse, uncomplicated ?Status:?Acute (2) Alcohol use disorder: ?Code(s): F10.90 - Alcohol use, unspecified, uncomplicated ?Status:?Acute (3) Opioid use with opioid-induced disorder: ?Code(s): F11.99 - Opioid use, unspecified with unspecified opioid-induced disorder ?Status:?Acute (4) Cellulitis of right lower leg: ?Code(s): L03.115 - Cellulitis of right lower limb ?Status:?Acute (5) Opioid abuse: ?Code(s): F11.10 - Opioid abuse, uncomplicated ?Status:?Acute (6) Sepsis: ?Qualifiers: ?Sepsis acute organ dysfunction status:?unspecified??Sepsis type:?sepsis due to unspecified organism? Qualified Code(s):?A41.9 - Sepsis, unspecified organism ?Code(s): A41.9 - Sepsis, unspecified organism ?Status:?Acute (7) Alcohol withdrawal: ?Qualifiers: ?Complication of substance-induced condition:?uncomplicated? Qualified Code(s):?F10.930 - Alcohol use, unspecified with withdrawal, uncomplicated ?Code(s): F10.939 - Alcohol use, unspecified with withdrawal, unspecified ?Status:?Acute (8) Elevated troponin: ?Code(s): R79.89 - Other specified abnormal findings of blood chemistry ?Status:?Acute (9) Dehydration: ?Code(s): E86.0 - Dehydration ?Status:?Acute (10) Hypomagnesemia: ?Code(s): E83.42 - Hypomagnesemia ?Status:?Acute (11) Tobacco abuse: ?Code(s): Z72.0 - Tobacco use ?Status:?Acute (12) Iron deficiency anemia: ?Qualifiers: ?Iron deficiency anemia type:?other iron deficiency? Qualified Code(s):?D50.8 - Other iron deficiency anemias ?Code(s): D50.9 - Iron deficiency anemia, unspecified ?Status:?Acute (13) Poor
--- NOTE | 2023-12-03 19:11 | PC.NURSE ---
Patient notified of risks of leaving AMA. [ Javon] notified. Follow up instructions given to patient. Patient signed AMA form.
== END 2023-12-03 19:11 | disposition left against medical advice (07) | DRG 720 ==
LOC: ANHED 05:22 → ANHIMU 05:57
PROVIDERS: Admitting Provider Internal Medicine; Emergency Provider Student in an Organized Health Care Education/Training Program; PCP Internal Medicine; Visit Provider Family Medicine
DX: A41.9 Sepsis, unspecified organism (principal); L03.115 Cellulitis of right lower limb; D50.9 Iron deficiency anemia, unspecified; E83.42 Hypomagnesemia; E86.0 Dehydration; L97.219 Non-pressure chronic ulcer of right calf with unspecified severity; R79.89 Other specified abnormal findings of blood chemistry; F11.10 Opioid abuse, uncomplicated; F19.10 Other psychoactive substance abuse, uncomplicated; F10.939 Alcohol use, unspecified with withdrawal, unspecified; F17.210 Nicotine dependence, cigarettes, uncomplicated; Z79.899 Other long term (current) drug therapy
CPT/HCPCS: 36415; 71045; 80053; 80202; 80307; 82565; 82607; 82728; 82746; 83540; 83550; 83605; 83690; 83735; 84100; 84443; 84484; 85025; 85610; 85730; 93005; 96365; 96366; 96367; 96375; 96376; 99285; A9270; G0378; J0690; J1650; J2060; J3370; J3411; J3475; J3480; J7030; J7042

== ENCOUNTER 2024-05-19 23:25 | Observation (INO) | payer SELFPAY ==
--- NOTE | ~2024-05-19 | CT_ITS ---
Non-contrast CT scan of the Abdomen and Pelvis Clinical indication: Abdominal pain Technique: 2.5 mm axial scans were obtained through the abdomen and pelvis without intravenous or or al contrast. Dose reduction technique was used on this scan by utilizing automated exposure control a nd iterative reconstruction technique. The dose-length product (DLP) was 239.94 mGy-cm. Findings: Images through the lung bases reveal. Minimal tree-in-bud opacities at the left lung base. There is no evidence of renal or ureteral calculi. The kidneys and the ureters are nondilated. There is diffuse hepatic steatosis. The spleen, pancreas, gallbladder, and adrenals appear normal. T here is no aortic aneurysm. There is no evidence of bowel obstruction. Images through the pelvis were performed. There is no evidence of ascites or lymphadenopathy. Urinary bladder unremarkable. No pelvic mass seen. Impression: Minimal tree-in-bud opacities left lung base suggests small airways infectious process. Diffuse hepatic steatosis. Reviewed, dictated and finalized at location . 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 Diffuse hepatic steatosis.
--- NOTE | ~2024-05-19 | XR_ITS ---
Portable chest x-ray Comparison: 11/30/2023 Clinical History: Cough Findings: Lungs are clear, without focal consolidation or pleural effusion. Possible COPD. Cardiome diastinal silhouette is stable. Bones and soft tissues are unremarkable. Impression: Clear lungs. Possible COPD. Reviewed, dictated and finalized at [facility]. MARKETING MANAGER Impression: Clear lungs. Possible COPD.
[2024-05-19 23:35] VITALS: BP 152/118; PULSE 100; RESP 18; TEMP 36.8; O2SAT 98
[2024-05-20] VITALS (16 sets, daily range): BP systolic 142–169; BP diastolic 90–115; PULSE 91–118; RESP 12–18; TEMP 36.7–37.2; O2SAT 93–99; BMI 21.2
--- NOTE | 2024-05-20 00:34 | ED.GENADULT ---
HPI - General Adult General Chief complaint: Unspecified Stated complaint: abd pain, alcohol drug withdrawl Time Seen by Provider: 05/20/24 00:26 History of Present Illness HPI narrative: patient is a 49-year-old gentleman who presents emergency department with chief complaint of potential alcohol withdrawal. Patient reports that he drinks 2 bottles of alcohol per day patient states his last drink was around 5:00 p.m. reports that he has had some diarrhea the patient reports that he snorts fentanyl and reports that he wants help with his addiction. The patient states he does not know where to go reports that he also has wounds to his right leg the patient also reports that he has pain in his abdomen Related Data Allergies Allergy/AdvReac Type Severity Reaction Status Date / Time iodine Allergy Intermediate Rash Verified 11/29/23 15:19 Review of Systems Review of Systems: A 10 system review of systems was completed on the patient and is negative except for what is stated in the HPI. Nursing and ancillary documentation was reviewed. 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 Open wound Personal history of nicotine dependence Polydrug abuse, continuous Poor dentition Tobacco abuse Surgical History Surgical History H/O vascular surgery 2020- lower R ext Family History Family History Father Acute myocardial infarction Alcoholism Social History Social History Smoking packs per day: 3 Smoking cigarettes per day: 60.0 Years smoked: 30 Smoking pack-years: 90.00 Smoking status: Current every day smoker Tobacco type: cigarettes Second hand tobacco smoke exposure: Yes Alcohol intake: current Drinks per week: 300 Substance use: current Substance use type: opiates Other substance usage details: injection Last use: 11/29/2023 Do You Feel Safe in your Home?: Yes Lack of Transportation: No Lack of Food: Never True Current Housing: I Do Not Have Housing Concerned About Future Housing: YES Difficulty Paying Gas/Electric Bills: YES Difficulty Paying for Meds: YES Currently Unemployed: YES Education: Associate Degree Difficulty w/ Childcare or Family Care: No Living arrangements: with family Additional living arrangements comments: Unable to return to his mother's home Occupation/Education: unemployed Gender identity (if verbalized by the patient): Male Spiritual care concerns: No Exam Narrative: GENERAL: Well-appearing, well-nourished, and in no acute distress. HEAD: Normocephalic, atraumatic. EYES: PERRLA and EOMI. ENT: Nares clear, no rhinorrhea or epistaxis. Mucous membranes moist. NECK: Supple. CHEST: Clear to auscultation. No respiratory distress. HEART: Regular rate and rhythm. No murmur heard. Normal peripheral pulses. ABDOMEN: Soft, diffusely tender to palpation, nondistended, normal active bowel sounds. EXTREMITIES: Normal range of motion. No edema. there is a large wound present to the calf. Patient has matted paper towels stuck to the wound SKIN: Warm, dry, no rash. NEURO: No focal deficits. Alert and oriented x3. PSYCH: Normal mood and affect. Course Vital Signs Vital signs: Vital Signs Temperature 36.8 C 05/19/24 23:35 Pulse Rate 100 05/19/24 23:35 Respiratory Rate 18 05/19/24 23:35 Blood Pressure 152/118 H 05/19/24 23:35 Pulse Oximetry 98 05/19/24 23:35 Temperature 36.8 C 05/19/24 23:35 Pulse Rate 100 05/19/24 23:35 Respiratory Rate 18 05/19/24 23:35 Blood Pressure 159/112 H 05/20/24 04:46 Pulse Oximetry 95 05/20/24 03:48 Medical Decision Making [facility] Narrative Medical decision making narrative: differential diagnosis includes alcohol withdrawal, sepsis, cellulitis, intra-abdominal infection CT scan of the abdomen pelvis showed no acute abnormality laboratory studies showed a normal CBC ETOH was negative lactic acid and procalcitonin were negative lipase was slightly elevated at [address] scan showed no evidence of acute pancreatitis patient received IV fluids Ativan initially the plan was to discharge the patient but the patient is still feeling extremely weak and has no place to go at this point with the wound plan will be to admit the patient for observation with potential impending alcohol withdrawal and also the patient has significant hypomagnesemia Vital Signs Vital Signs: Vital Signs Temperature 36.8 C 05/19/24 23:35 Pulse Rate 100 05/19/24 23:35 Respiratory Rate 18 05/19/24 23:35 Blood Pressure 152/118 H 05/19/24 23:35 Pulse Oximetry 98 05/19/24 23:35 Temperature 36.8 C 05/19/24 23:35 Pulse Rate 100 05/19/24 23:35 Respiratory Rate 18 05/19/24 23:35 Blood Pressure 159/112 H 05/20/24 04:46 Pulse Oximetry 95 05/20/24 03:48 Lab Data 05/20/24 01:10 05/20/24 01:09 Labs: Lab Results 05/20/24 05/20/24 Range/Units 01:09 01:10 WBC 10.7 H (4.5-10.0) K/mm3 RBC 4.65 (4.6-6.20) M/mm3 Hgb 15.8 (14.0-18.0) g/dL Hct 44.8 (42.0-52.0) % MCV 96.3 (80-100) fl MCH 34.0 (26-34) pg MCHC 35.3 (32-36) g/dl RDW 16.3 H (11.5-14.5) % Plt Count 299 (150-375) k/mm3 MPV 10.5 H (7.4-10.4) fl Immature Gran % (Auto) 0.5 (0-0.5) % Neut % (Auto) 76.9 H (45.5-73.1) % Lymph % (Auto) 12.2 L (18.3-44.2) % [place] % (Auto) 8.5 (2.6-8.5) % Eos % (Auto) 1.4 (0-4.4) % Baso % (Auto) 0.5 (0.2-1.2) % Lymph # (Auto) 1.31 (0.9-3.2) K/mm3 [place] # (Auto) 0.9 H (0.1-0.6) K/mm3 Eos # (Auto) 0.2 (0-0.3) K/mm3 Baso # (Auto) 0.1 (0.0-0.1) K/mm3 Abs Immat Gran (auto) 0.05 H (0.00-0.031) K/mm3 Absolute Neuts (auto) 8.3 H (1.3-6.7) K/mm3 Absolute Nucleated RBC 0.000 (0.0-0.012) K/mm3 Nucleated RBC % 0.0 (0.0-0.2) % ESR 15 (0-20) mm/hr PT 13.2 (11.1-14.7) Seconds INR 1.0 APTT 29.0 (22.3-36.8) Seconds Sodium 132 L (137-145) mmol/L Potassium 3.7 (3.4-5.0) mmol/L Chloride 99 (98-107) mmol/L Carbon Dioxide 23 (22-30) mmol/L Anion Gap 10 (4-12) mmol/L BUN 17 (9-20) mg/dL Creatinine 0.40 L (0.7-1.3) mg/dL Estim Creat Clear Calc Not Reportable Estimated GFR > 60 (59 - ) Glucose 108 (65-110) mg/dL Lactic Acid 1.5 (0.7-2.0) mmol/L Calcium 9.2 (8.4-10.2) mg/dL Magnesium 1.3 L (1.6-2.3) mg/dL Total Bilirubin 1.4 H (0.2-1.3) mg/dL AST 110 H (17-59) U/L ALT 94 H (6-50) U/L Alkaline Phosphatase 783 H (38-126) U/L Troponin I < 0.012 (0.000-0.034) ng/mL C-Reactive Protein 2.0 H (<1.0) mg/dL NT-Pro-B Natriuret Pep 263 H (19.9-100) pg/mL Total Protein 7.0 (6.3-8.2) g/dL Albumin 3.5 (3.5-5.1) g/dL Lipase 1900 H (23-300) U/L Procalcitonin 0.1 ng/mL Ethyl Alcohol < 10 (<10) mg/dL Discharge Plan Discharge Clinical Impression: Alcohol use disorder, Cellulitis of leg, right, Hypomagnesemia, Elevated lipase Patient Disposition: Home, Self-Care Condition: Stable Instructions: Antibiotic Form, Abuse of Alcohol (ED), Polysubstance Use Disorder (ED), Chronic Wounds (ED) Prescriptions: New clindamycin HCl 300 mg capsule 300 mg PO Q6H 10 Days Qty: 40 0RF No Action buprenorphine-naloxone [Suboxone] 8-2 mg film 1 film buccal BID 5 Days Qty: 10 0RF chlordiazepoxide HCl 25 mg capsule 25 mg PO Q6-12H PRN (Reason: alcohol withdrawal) Qty: 15 0RF Rx Instructions: Take 2 tabs every 6 to 12 hours on day 1; 1 tab every 6 hours on day 2; 1 tab every 12 hours on day 3; 1 tab at night on day 4. naloxone [Narcan] 4 mg/actuation spray,non-aerosol 4 mg intranasal Q2-3M PRN (Reason: opioid overdose) Qty: 2 0RF Rx Instructions: spray 1 dose into ONE nostril; alternate nostrils w each dose until help arrives buprenorphine-naloxone 8-2 mg film 2 film buccal DAILY 3 Days Qty: 6 0RF Rx Instructions: place 1 film on inside of (each) cheek cephalexin 500 mg capsule 500 mg PO Q6H 7 Days Qty: 28 0RF Follow-up/Referrals: [facility] [employer] [Outside] [facility] [employer] [Outside] Ramin Garcia MD [Physician] - Julian Lucero MD [Primary Care Provider] -
[2024-05-20] MEDS: THIAMINE HCL 200 MG/2 ML VIAL (01:50)
[2024-05-20] MEDS: LORazepam INJ (*CRX) 2 MG/ML VIAL (01:50)
[2024-05-20 03:25] LABS: Prothrombin Time 13.2 Seconds (11.1-14.7)
[2024-05-20 03:26] LABS: Lactic Acid Reflex 1.5 mmol/L (0.7-2.0)
[2024-05-20 03:26] LABS: Ethanol < 10 mg/dL (<10); Procalcitonin 0.1 ng/mL
[2024-05-20 03:34] LABS: Basophils Absolute Auto 0.1 K/mm3 (0.0-0.1); Basophils Percent Auto 0.5 % (0.2-1.2); Eosinophils Absolute Auto 0.2 K/mm3 (0-0.3); Eosinophils Percent Auto 1.4 % (0-4.4); Hematocrit 44.8 % (42.0-52.0); Hemoglobin 15.8 g/dL (14.0-18.0); Immature Granulocyte Absolute 0.05 K/mm3 (0.00-0.031); Immature Granulocyte Percent A 0.5 % (0-0.5); Lymphocytes Absolute Auto 1.31 K/mm3 (0.9-3.2); Lymphocytes Percent Auto 12.2 % (18.3-44.2); Mean Corpuscular HGB Conc 35.3 g/dl (32-36); Mean Corpuscular Volume 96.3 fl (80-100); Mean Platelet Volume 10.5 fl (7.4-10.4); Monocytes Absolute Auto 0.9 K/mm3 (0.1-0.6); Monocytes Percent Auto 8.5 % (2.6-8.5); Neutrophils Absolute Auto 8.3 K/mm3 (1.3-6.7); Neutrophils Percent Auto 76.9 % (45.5-73.1); Platelet Count Result 299 k/mm3 (150-375); Red Blood Count 4.65 M/mm3 (4.6-6.20); Red Cell Distribution Width 16.3 % (11.5-14.5); White Blood Count 10.7 K/mm3 (4.5-10.0)
[2024-05-20 03:35] LABS: Erythrocyte Sedimentation Rate 15 mm/hr (0-20)
[2024-05-20] MEDS: SODIUM CHLORIDE 0.9% IV 1,000 ML 999 ML (03:55)
[2024-05-20] MEDS: CLINDAMYCIN 900 MG/D5W 50 ML 900 MG/50 ML PIGGYBACK 50 MG IVPB (04:23)
[2024-05-20 04:45] LABS: Alanine Aminotransferase 94 U/L (6-50); Albumin Level 3.5 g/dL (3.5-5.1); Alkaline Phosphatase 783 U/L (38-126); Anion Gap 10 mmol/L (4-12); Aspartate Amino Transferase 110 U/L (17-59); Bilirubin,Total 1.4 mg/dL (0.2-1.3); Blood Urea Nitrogen 17 mg/dL (9-20); Calcium 9.2 mg/dL (8.4-10.2); Carbon Dioxide 23 mmol/L (22-30); Chloride 99 mmol/L (98-107); Estimated Glomerular Filt Rate > 60; Glucose 108 mg/dL (65-110); Lipase 1900 U/L (23-300); Magnesium 1.3 mg/dL (1.6-2.3); Potassium 3.7 mmol/L (3.4-5.0); Sodium 132 mmol/L (137-145)
[2024-05-20 04:54] LABS: NT Pro B Type Natriuretic Pept 263 pg/mL (19.9-100); Troponin I < 0.012 ng/mL (0.000-0.034)
--- NOTE | 2024-05-20 06:17 | ECG_ITS ---
Test Date: 2024-05-20 06:22:31 Measurements Intervals [place] Rate: 89 P: 72 MD: 162 QRS: 92 QRSD: 102 T: 83 QT: 394 QTc: 480 Interpretive Statements SINUS RHYTHM POSSIBLE LEFT ATRIAL ENLARGEMENT DELAYED PRECORDIAL R/S TRANSITION MINIMAL Q WAVES- INFERIOR LEADS BASELINE ARTIFACT- I, II, III, AVR, AVL, AVF BORDERLINE ECG No previous ECG available for comparison Electronically Signed On 05-20-2024 06:24:25 POLICY WRITER SALES by Maged Diamond D.O.
[2024-05-20 06:42] LABS: Add Urine Microscopic? YES; Appearance Urine Clear (Clear); Bacteria Urine None Seen /hpf; Bilirubin Urine Negative (Negative); Blood Urine 1+ (Negative); Color Urine Dark Yellow (Yellow); Glucose Urine UA Negative (Negative); Ketones Urine Negative (Negative); Leukocyte Esterase Ur Negative LEU/UL (Negative); Nitrate Urine Negative (Negative); Non Pathogenic Casts 0-2; Protein Urine 2+ mg/dL (Negative); RBC Urine 21-50 /hpf (0-2); Specific Grav Ur 1.018 (1.001-1.035); Squamous Epithelial Cell Urine None Seen /hpf (Few); WBC Urine 0-5 /hpf (0-3); pH Urine 8.5 (5.0-9.0)
[2024-05-20] MEDS: THIAMINE HCL INJ 100 MG, FOLIC ACID INJ 1 MG, MAGNESIUM SULFATE INJ 1 GM, MULTIVITAMINS... 125 MG IV CONT (06:51)
[2024-05-20] MEDS: MAGNESIUM SULF 2 GM/WATER 50ML 2 GM/50 ML BAG IVPB (06:51)
[2024-05-20 06:56] LABS: Amphetamine Screen Urine Negative (Negative); Barbiturate Screen Urine Negative (Negative); Benzodiazepines Screen Urine Negative (Negative); Cannabinoid Screen Urine Negative (Negative); Cocaine Screen Urine Negative (Negative); Methadone Screen Urine Negative (Negative); Opiate Screen Urine Negative (Negative); Phencyclidine Screen Urine Negative (Negative)
[2024-05-20 07:15] LABS: Influenza A QL RT-PCR Negative (Negative); Influenza B QL RT-PCR Negative (Negative); RSV RNA, RT-PCR Negative (Negative); SARS-CoV-2 RNA PCR Negative (Negative)
[2024-05-20] MEDS: hydrALAZINE HCL 20 MG/ML VIAL 10 MG IV PUSH (08:14)
[2024-05-20 08:16] LABS: Glucose Point of Care 148 mg/dl (65-105)
[2024-05-20] MEDS: THIAMINE HCL 200 MG/2 ML VIAL 100 MG IV PUSH (08:22)
--- NOTE | 2024-05-20 08:26 | PC.NURSE ---
RN atempted to get pt into hospital gown, pt refuses stating What difference it make. My shirt dirty, pants dirty, I like it. Why I need this . RN tried to educate pt. Pt states If I go upstairs and they want me in gown, then I wear one up there. I don't need one
[2024-05-20] MEDS: COLLAGENASE OINT 30 GM TUBE 1 APPLIC TOPICAL (10:08)
--- NOTE | 2024-05-20 12:28 | ADMGEN ---
This patient, Christiano Wright, was admitted to [facility] Surg Room 311-01. Patient/family oriented to hospital policies and general routines including ID bracelet, bed and alarms, visiting hours, pain management, procedures, bathroom and other care routines, personal items, smoking policy, room service/diet, and visiting hours. Information on how to activate the Rapid Response Team has been discussed. Patient/Family are encouraged to report perceived risks to care and to ask questions if they do not understand what they are told or what they should do.
--- NOTE | 2024-05-20 12:32 | P.HP_ITS ---
H&P: HPI History of Present Illness Date/Time: 05/20/24 12:32 Chief Complaint: Abdominal pain Alcohol withdrawal Narrative: This is a 49-year-old male with a significant past medical history of iron deficiency anemia, alcohol abuse, fentanyl abuse, tobacco abuse who presented to the hospital with chief complaint of abdominal pain, alcohol withdrawal, and right leg pain. Patient reported that he drinks 2 bottles of vodka per day with his last drink being around 5:00 p.m. yesterday. He also admits to snorting 5 pills of fentanyl and is requesting help with his addiction. Patient also admits to heroin abuse however the last time he used was back in 2018. He has a chronic wound on the back of his right calf and that is where he used to shoot heroin. When assessing the wound does not appear infected however does have some yellow slough in the wound bed. I did not see any redness or swelling to the area concerning for infection/cellulitis. He states that he follows at a wound clinic for his wound care. He currently is getting santal on the wound bed and covered with a clean dry dressing. Workup in the hospital included a chest x-ray which was negative for any acute cardiopulmonary disease. Initial labs shown a white blood cell count of 10.7, INR 1.0, sodium 132, creatinine 0.40, lactic acid was normal at 1.5, magnesium 1.3, total bili 1.4, AST 110, ALT 94, alk-phos 783, troponin negative, C reactive protein 2.0, proBNP 263, lipase 1900, procalcitonin 0.1. UA was obtained which showed 2+ urine protein, 1+ urine blood, 21-50 urine RBC otherwise unremarkable. Urine drug screen was ne gative as well as alcohol level was less than 10. Respiratory panel was negative for influenza a and B, RSV, COVID. Blood cultures were obtained and are pending. EKG showing sinus rhythm with possible left atrial enlargement with a rate of 89, QTC 480. Patient was given a dose of thiamin, 1 L normal saline, hydralazine, 2 g of magnesium, Ativan 2 mg, and started on clindamycin while in the ED. Review of Systems Review of Systems: All systems reviewed & are unremarkable except as noted in HPI and below Constitutional: Constitutional: Reports as per HPI and Reports no additional constitutional complaints Eyes: Eyes: Reports as per HPI and Reports no additional eye complaints ENT: Reports system reviewed and no additional complaints, except as documented and Reports as per HPI Cardiovascular: Cardiovascular: Reports as per HPI and Reports no additional cardiovascular complaints Respiratory: Respiratory: Reports as per HPI and Reports no additional respiratory complaints Gastrointestinal: Gastrointestinal: Reports as per HPI and Reports no additional gastrointestinal complaints Genitourinary: Genitourinary: Reports no additional male genitourinary complaints and Reports as per HPI Musculoskeletal: Musculoskeletal: Reports no additional musculoskeletal complaints and Reports as per HPI Integumentary/Breasts: Skin/Breast: Reports system reviewed and no additional complaints, except as docu and Reports as per HPI Neurologic: Reports system reviewed and no additional complaints, except as documented and Reports as per HPI Psychiatric: Psychiatric: Reports no additional psychiatric complaints and Reports as per HPI [facility] Past Medical History Medical History (Updated 05/20/24 @ 14:15 by Yamileth Hayden APRN) Blood loss anemia BMI 23.0-23.9, adult BMI 25.0-25.9,adult BMI 26.0-26.9,adult Drug addiction Encounter for routine adult health examination without abnormal findings Encounter to establish care History of heroin abuse Hx of drug abuse Iron deficiency anemia 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 Open wound Personal history of nicotine dependence Polydrug abuse, continuous Poor dentition Tobacco abuse Surgical History Surgical History H/O vascular surgery 2020- lower R ext Family History Family History Father Acute myocardial infarction Alcoholism Social History Social History Smoking packs per day: 1 Smoking cigarettes per day: 20.0 Years smoked: 30 Smoking pack-years: 30.00 Smoking status: Current every day smoker Tobacco type: cigarettes Second hand tobacco smoke exposure: Yes Alcohol intake: current Drinks per week: 43 Substance use: current Substance use type: other Other substance usage details: Fentanyl Last use: 11/29/2023 Do You Feel Safe in your Home?: Yes Lack of Transportation: YES Lack of Food: Often True Current Housing: I Do Not Have Housing Concerned About Future Housing: YES Difficulty Paying Gas/Electric Bills: YES Difficulty Paying for Meds: YES Currently Unemployed: YES Education: High School Diploma/GED Difficulty w/ Childcare or Family Care: No Living arrangements: with family Additional living arrangements comments: Unable to return to his mother's home Occupation/Education: unemployed Gender identity (if verbalized by the patient): Male Spiritual care concerns: Yes (Christianity) Meds Home Medications and Allergies Home Medications Medication Instructions Recorded Confirmed Type buprenorphine 8 mg-naloxone 2 mg 1 film buccal BID 5 days #10 ea 10/20/23 05/20/24 Rx sublingual film (Suboxone) buprenorphine 8 mg-naloxone 2 mg 2 film buccal DAILY 3 days #6 ea 11/29/23 05/20/24 Rx sublingual film Allergies Allergy/AdvReac Type Severity Reaction Status Date / Time iodine Allergy Intermediate Rash Verified 11/29/23 15:19 Vital Signs Vital Signs - 24 hr 05/19/24 23:35 05/20/24 03:48 05/20/24 04:01 Temperature 98.3 F Pulse Rate 100 Respiratory Rate 18 Blood Pressure 152/118 H 144/108 H Pulse Oximetry 98 95 05/20/24 04:16 05/20/24 04:31 05/20/24 04:46 Temperature Pulse Rate Respiratory Rate Blood Pressure 142/105 H 144/107 H 159/112 H Pulse Oximetry 05/20/24 07:07 05/20/24 08:14 05/20/24 09:18 Temperature Pulse Rate 97 107 H 108 H Respiratory Rate 16 16 14 Blood Pressure 169/112 H 161/115 H 147/102 H Pulse Oximetry 99 98 93 05/20/24 10:20 05/20/24 11:13 05/20/24 12:00 Temperature 98.2 F 98.9 F Pulse Rate 97 100 94 Respiratory Rate 16 15 18 Blood Pressure 150/115 H 150/105 H 153/104 H Pulse Oximetry 97 97 99 Exam Narrative: General: In no acute distress, very malnourished Head: atraumatic, no encephalopathy Eyes: PERRLA, sclera clear ENT: moist mucous membranes, nasal passages clear Neck: supple, no JVD, no adenopathy, trachea midline Cardiac: Normal S1 and S2. No murmur, gallops or friction rubs, peripheral pulses intact. Respiratory: Rhonchi noted bilaterally, no adventitious lung sounds, currently on room air Gastrointestinal: soft, non-distended, flat, non-tender, normoactive bowel sounds. : voiding without difficulty. Extremities: moves all extremities well, no edema, tremors noted bilateral upper extremity, muscle wasting Skin: Right calf wound that is chronic. The wound has yellow slough in the wound bed. It does not look infected, swollen, red or warm. Neuro: Alert and oriented x4, cranial nerves intact, no neuro deficits. Psych: normal mood, normal affect, interactive H&P: Results Labs Labs: Short CBC 05/20/24 Range/Units 01:10 WBC 10.7 H (4.5-10.0) K/mm3 Hgb 15.8 (14.0-18.0) g/dL Hct 44.8 (42.0-52.0) % Plt Count 299 (150-375) k/mm3 BMP 05/20/24 01:09 Sodium 132 L Potassium 3.7 Chloride 99 Carbon Dioxide 23 BUN 17 Creatinine 0.40 L Glucose 108 Calcium 9.2 Cardiac Enzymes 05/20/24 Range/Units 01:09 Troponin I < 0.012 (0.000-0.034) ng/mL Liver Function 05/20/24 Range/Units 01:09 Total Bilirubin 1.4 H (0.2-1.3) mg/dL AST 110 H (17-59) U/L ALT 94 H (6-50) U/L Alkaline Phosphatase 783 H (38-126) U/L Albumin 3.5 (3.5-5.1) g/dL Urine 05/20/24 Range/Units 06:21 Urine Color Dark yellow (Yellow) Urine Appearance Clear (Clear) Urine pH 8.5 (5.0-9.0) Ur Specific [place] 1.018 (1.001-1.035) Urine Protein 2+ H (Negative) mg/dL Urine Glucose (UA) Negative (Negative) mg/dL Imaging Chest x-ray: Radiologist's impression: Portable chest x-ray Comparison: 11/30/2023 Clinical History: Cough Findings: Lungs are clear, without focal consolidation or pleural effusion. Possible COPD. Cardiomediastinal silhouette is stable. Bones and soft tissues are unremarkable. Impression: Clear lungs. Possible COPD. Reviewed, dictated and finalized at location . [facility] Assessment and Plan Assessment and plan (1) Cellulitis of leg, right: Code(s): L03.115 - Cellulitis of right lower limb Status: Acute Assessment and Plan: * Right calf wound that is chronic. Patient states that he is had this wound for 4 years which used to be a heroin injection site. It appears that he had some vascular surgery at some point to that leg. [facility] with [facility]. * CRP 2.0, white blood cell count 10.7 * Patient initially started on clindamycin * Continue santal dressing changes * Wound care nurse consulted * Wound does not look like it is infected/cellulitis as there is no redness, swelling, warmth surrounding the area. There is yellow slough in the wound bed itself. * Will go ahead and discontinue clindamycin today (2) Hypomagnesemia: Code(s): E83.42 - Hypomagnesemia Status: Acute Assessment and Plan: * Magnesium 1.3 * He was given 2 g magnesium while in the ED * Continue to trend (3) Polydrug abuse, continuous: Code(s): F19.10 - Other psychoactive substance abuse, uncomplicated Status: Acute Assessment and Plan: * Reports that he snorts fentanyl and is requesting help for his addiction * Case coordination consulted * Urine drug screen was negative * History of heroin abuse with his right calf being his injection site, quit heroin in 2018 (4) Alcohol use disorder: Code(s): F10.90 - Alcohol use, unspecified, uncomplicated Status: Acute Assessment and Plan: * Drinks 2 bottles of vodka a day * Last drink was 5:00 p.m. yesterday * Continue CIWA protocol * Continue thiamin at high-dose * Seizure precautions * Alcohol level less than 10 on arrival (5) Elevated lipase: Code(s): R74.8 - Abnormal levels of other serum enzymes Status: Acute Assessment and Plan: * Lipase elevated at 1200 * CT of the abdomen and pelvis showed diffuse hepatic steatosis, minimal tree-in-bud opacities in the left lung base suggesting small airway infectious process. No pancreatitis per CT scan. * Likely due to alcohol abuse * Will go ahead and put in for a clear liquid diet today (6) Pneumonia: Code(s): J18.9 - Pneumonia, unspecified organism Status: Acute Assessment and Plan: * Chest x-ray was negative * Chest CT shown tree-in-bud opacity * White blood cell count 10.7 * Azithromycin and Augmentin started (7) Transaminitis: Code(s): R74.01 - Elevation of levels of liver transaminase levels Status: Inactive Assessment and Plan: * Total bilirubin 1.4, AST 110, ALT 94, alkaline phos 783 * Likely secondary to alcohol abuse and hepatic steatosis * Continue to trend (8) Hepatic steatosis: Code(s): K76.0 - Fatty (change of) liver, not elsewhere classified Status: Acute Assessment and Plan: * CT scan showing hepatic steatosis * Liver enzymes elevated * Likely secondary to alcoholism (9) Severe protein-calorie malnutrition: Code(s): E43 - Unspecified severe protein-calorie malnutrition Status: Acute Assessment and Plan: * BMI 21.2, 61.5 kg * Patient reports he has not been able to eat for 3 days. However her rarely takes in any nutrition other than alcohol. * Severe muscle wasting and deconditioning. * Dietitian consulted Quality VTE Prophylaxis VTE prophylaxis: mechanical ordered
[2024-05-20 17:05] LABS: Glucose Point of Care 139 mg/dl (65-105)
[2024-05-20 19:53] LABS: Glucose Point of Care 138 mg/dl (65-105)
[2024-05-20 20:38] LABS: Cholesterol 170 mg/dL (0-200); HDL Direct 65 mg/dL; Triglycerides 108 mg/dL (<150)
[2024-05-20] MEDS: AMOXICILLIN/CLAVULANATE K 875-125 MG TAB 1 TABLET PO (20:47)
[2024-05-20 20:48] LABS: LDL Cholesterol Direct 85 mg/dL
[2024-05-20 21:42] LABS: Folic Acid 2.5 ng/mL (2.76->20)
--- NOTE | 2024-05-20 23:22 | PC.NURSE ---
I called and spoke with LINO Blount about Pt's blood pressures being 160/100 & 160/90. Pt. states he has a Hx. HTN but doesn't take anything for it. Mine states to document all blood pressure readings for day shift to review. She does not feel that it is high enough at this point to treat.
[2024-05-21] VITALS (7 sets, daily range): BP systolic 160–173; BP diastolic 111–113; PULSE 81–98; RESP 12–18; TEMP 36.7–37.1; O2SAT 98–100
[2024-05-21 06:55] LABS: Basophils Percent Auto 0.5 % (0.2-1.2); Eosinophils Absolute Auto 0.1 K/mm3 (0-0.3); Eosinophils Percent Auto 1.7 % (0-4.4); Hematocrit 43.9 % (42.0-52.0); Hemoglobin 14.9 g/dL (14.0-18.0); Immature Granulocyte Absolute 0.05 K/mm3 (0.00-0.031); Immature Granulocyte Percent A 0.6 % (0-0.5); Immature Platelet Fraction Pct 5.8 % (0.9-11.2); Lymphocytes Absolute Auto 1.04 K/mm3 (0.9-3.2); Lymphocytes Percent Auto 12.8 % (18.3-44.2); Mean Corpuscular HGB Conc 33.9 g/dl (32-36); Mean Corpuscular Hemoglobin 34.8 pg (26-34); Mean Corpuscular Volume 102.6 fl (80-100); Mean Platelet Volume 11.9 fl (7.4-10.4); Monocytes Absolute Auto 0.6 K/mm3 (0.1-0.6); Monocytes Percent Auto 7.7 % (2.6-8.5); Neutrophils Absolute Auto 6.2 K/mm3 (1.3-6.7); Neutrophils Percent Auto 76.7 % (45.5-73.1); Platelet Count Result 197 k/mm3 (150-375); Red Blood Count 4.28 M/mm3 (4.6-6.20); Red Cell Distribution Width 16.5 % (11.5-14.5); White Blood Count 8.1 K/mm3 (4.5-10.0)
[2024-05-21 08:28] LABS: Alanine Aminotransferase 67 U/L (6-50); Albumin Level 3.4 g/dL (3.5-5.1); Alkaline Phosphatase 563 U/L (38-126); Anion Gap 6 mmol/L (4-12); Aspartate Amino Transferase 84 U/L (17-59); Bilirubin,Total 1.3 mg/dL (0.2-1.3); Blood Urea Nitrogen 20 mg/dL (9-20); Calcium 8.5 mg/dL (8.4-10.2); Carbon Dioxide 26 mmol/L (22-30); Chloride 102 mmol/L (98-107); Estimated CRCL calculation 130 ml/min; Estimated Glomerular Filt Rate > 60; Glucose 106 mg/dL (65-110); Magnesium 1.9 mg/dL (1.6-2.3); Potassium 3.1 mmol/L (3.4-5.0); Sodium 134 mmol/L (137-145)
[2024-05-21] MEDS: AMOXICILLIN/CLAVULANATE K 875-125 MG TAB 1 TABLET PO (08:31)
[2024-05-21] MEDS: AZITHROMYCIN 250 MG TABLET 500 MG PO (08:31)
[2024-05-21] MEDS: THIAMINE HCL 200 MG/2 ML VIAL 300 MG IV PUSH (08:36)
[2024-05-21] MEDS: NICOTINE (*PBKC) 4 MG GUM PO (09:39)
[2024-05-21] MEDS: COLLAGENASE OINT 30 GM TUBE 1 APPLIC TOPICAL (09:40)
[2024-05-21] MEDS: LOSARTAN POTASSIUM 25 MG TABLET PO (09:40)
[2024-05-21] MEDS: POTASSIUM CHLORIDE 20 MEQ ER TABLET 40 MEQ PO (09:40)
[2024-05-21 12:04] LABS: Glucose Point of Care 160 mg/dl (65-105)
--- NOTE | 2024-05-21 12:24 | P.PNIM_ITS ---
Progress Note: A&P Assessment and Plan (1) Cellulitis of leg, right: Code(s): L03.115 - Cellulitis of right lower limb Status: Acute Assessment and Plan: * Right calf wound that is chronic. Patient states that he is had this wound for 4 years which used to be a heroin injection site. It appears that he had some vascular surgery at some point to that leg. He [facility] with [facility]. * CRP 2.0 * white blood cell count 8.1 today * Patient initially started on clindamycin however discontinued due to no s/s of infection * Continue santal dressing changes * Wound care nurse consulted (2) Hypomagnesemia: Code(s): E83.42 - Hypomagnesemia Status: Acute Assessment and Plan: * Magnesium 1.9 today * No need to replace today * Continue to trend (3) Polydrug abuse, continuous: Code(s): F19.10 - Other psychoactive substance abuse, uncomplicated Status: Acute Assessment and Plan: * Reports that he snorts fentanyl and is requesting help for his addiction * Case coordination consulted * Urine drug screen was negative * History of heroin abuse with his right calf being his injection site, quit heroin in 2018 (4) Alcohol use disorder: Code(s): F10.90 - Alcohol use, unspecified, uncomplicated Status: Acute Assessment and Plan: * Drinks 2 bottles of vodka a day * Last drink was 5:00 p.m. yesterday * Continue CIWA protocol * Continue thiamin at high-dose * Seizure precautions * Alcohol level less than 10 on arrival * Tremors, anxiety, and mild aggitation noted today (5) Elevated lipase: Code(s): R74.8 - Abnormal levels of other serum enzymes Status: Acute Assessment and Plan: * Lipase elevated initially 1200 * Will obtain another level in the morning * CT of the abdomen and pelvis showed diffuse hepatic steatosis, minimal tree-in-bud opacities in the left lung base suggesting small airway infectious process. No pancreatitis per CT scan. * Likely due to alcohol abuse * Will go ahead and put in for a clear liquid diet today (6) Pneumonia: Code(s): J18.9 - Pneumonia, unspecified organism Status: Acute Assessment and Plan: * Chest x-ray was negative * Chest CT shown tree-in-bud opacity * White blood cell count WNL * Continue Azithromycin and Augmentin (7) Transaminitis: Code(s): R74.01 - Elevation of levels of liver transaminase levels Status: Inactive Assessment and Plan: * Initial Total bilirubin 1.4, AST 110, ALT 94, alkaline phos 783 * Total bili 1.3, AST 84, ALT 67, alkaline phosphate 563 * Likely secondary to alcohol abuse and hepatic steatosis * Continue to trend (8) Hepatic steatosis: Code(s): K76.0 - Fatty (change of) liver, not elsewhere classified Status: Acute Assessment and Plan: * CT scan showing hepatic steatosis * Liver enzymes elevated * Likely secondary to alcoholism (9) Severe protein-calorie malnutrition: Code(s): E43 - Unspecified severe protein-calorie malnutrition Status: Acute Assessment and Plan: * BMI 21.2, 61.5 kg * Patient reports he has not been able to eat for 3 days. However her rarely takes in any nutrition other than alcohol. * Severe muscle wasting and deconditioning. * Dietitian consulted Time Spent With Patient Time with patient: 25 - 35 minutes Subjective Date/time seen: 05/21/24 12:24 Interval history: Interval History: This is a 49-year-old male with a significant past medical history of iron deficiency anemia, alcohol abuse, fentanyl abuse, tobacco abuse who presented to the hospital with chief complaint of abdominal pain, alcohol withdrawal, and right leg pain. Patient reported that he drinks 2 bottles of vodka per day with his last drink being around 5:00 p.m. yesterday. He also admits to snorting 5 pills of fentanyl and is requesting help with his addiction. Patient also admits to heroin abuse however the last time he used was back in 2018. He has a chronic wound on the back of his right calf and that is where he used to shoot heroin. When assessing the wound does not appear infected however does have some yellow slough in the wound bed. I did not see any redness or swelling to the area concerning for infection/cellulitis. He states that he follows at a wound clinic for his wound care. He currently is getting santal on the wound bed and covered with a clean dry dressing. Workup in the hospital included a chest x-ray which was negative for any acute cardiopulmonary disease. Initial labs shown a white blood cell count of 10.7, INR 1.0, sodium 132, creatinine 0.40, lactic acid was normal at 1.5, magnesium 1.3, total bili 1.4, AST 110, ALT 94, alk-phos 783, troponin negative, C reactive protein 2.0, proBNP 263, lipase 1900, procalcitonin 0.1. UA was obtained which showed 2+ urine protein, 1+ urine blood, 21-50 urine RBC otherwise unremarkable. Urine drug screen was negative as well as alcohol level was less than 10. Respiratory panel was negative for influenza a and B, RSV, COVID. Blood cultures were obtained and are pending. EKG showing sinus rhythm with possible left atrial enlargement with a rate of 89, QTC 480. Patient was given a dose of thiamin, 1 L normal saline, hydralazine, 2 g of magnesium, Ativan 2 mg, and started on clindamycin while in the ED. Subjective: Patient reports diarrhea again today. He states he did not sleep very well, kept tossing and turning. He appears anxious and agitated this a.m. He wants to go outside and smoke. He states that he doesn't want to leave AMA however not being able to go outside to smoke would cause him to leave. I discussed hospital policy with patient and also offered a nicotine patch which he refused. Labs reviewed. Review of Systems Review of Systems: All systems reviewed & are unremarkable except as noted in HPI and below Constitutional: Constitutional: Reports as per HPI and Reports no additional constitutional complaints Eyes: Eyes: Reports as per HPI and Reports no additional eye complaints ENT: Reports system reviewed and no additional complaints, except as documented and Reports as per HPI Cardiovascular: Cardiovascular: Reports as per HPI and Reports no additional cardiovascular complaints Respiratory: Respiratory: Reports as per HPI and Reports no additional respiratory complaints Gastrointestinal: Gastrointestinal: Reports as per HPI and Reports no additional gastrointestinal complaints Genitourinary: Genitourinary: Reports no additional male genitourinary complaints and Reports as per HPI Musculoskeletal: Musculoskeletal: Reports no additional musculoskeletal complaints and Reports as per HPI Integumentary/Breasts: Skin/Breast: Reports system reviewed and no additional complaints, except as docu and Reports as per HPI Neurologic: Reports system reviewed and no additional complaints, except as documented and Reports as per HPI Psychiatric: Psychiatric: Reports no additional psychiatric complaints and Reports as per HPI Exam Narrative: General: In no acute distress, very malnourished Cardiac: Normal S1 and S2. No murmur, gallops or friction rubs, peripheral pulses intact. Respiratory: Rhonchi noted bilaterally, no adventitious lung sounds, currently on room air Gastrointestinal: soft, non-distended, flat, non-tender, normoactive bowel sounds. : voiding without difficulty. Extremities: moves all extremities well, no edema, tremors noted bilateral upper extremity, muscle wasting Skin: Right calf wound that is chronic. The wound has yellow slough in the wound bed. It does not look infected, swollen, red or warm. Neuro: Alert and oriented x4 Psych: tremors noted bilateral hands, seems more aggitated today Objective Data Vital Signs Vital Signs: Vital Signs - 24 hr 05/20/24 12:30 05/20/24 14:00 05/20/24 20:00 Temperature 98.5 F Pulse Rate 104 H Respiratory Rate 18 Blood Pressure 150/103 H Pulse Oximetry 99 Oxygen Delivery Room Air Room Air Fraction of Inspired Oxygen 05/20/24 16:00 05/20/24 20:00 05/20/24 22:00 Temperature 98.1 F Pulse Rate 106 H 118 H 91 Respiratory Rate 12 Blood Pressure 160/100 H Pulse Oximetry 98 Oxygen Delivery Fraction of Inspired Oxygen 05/20/24 23:21 05/21/24 00:00 05/21/24 04:00 Temperature Pulse Rate 92 85 Respiratory Rate Blood Pressure 160/90 H Pulse Oximetry Oxygen Delivery Fraction of Inspired Oxygen 05/21/24 06:00 05/21/24 08:00 05/21/24 08:00 Temperature 98.8 F Pulse Rate 81 83 Respiratory Rate 12 Blood Pressure 160/113 H Pulse Oximetry 100 100 Oxygen Delivery Room Air Fraction of Inspired Oxygen 05/21/24 10:24 Temperature Pulse Rate Respiratory Rate Blood Pressure Pulse Oximetry 98 Oxygen Delivery Room Air Fraction of Inspired Oxygen 21 Intake/Output Intake/Output: Intake & Output 05/18/24 05/19/24 05/20/24 05/21/24 23:59 23:59 23:59 23:59 Intake Total 1580 615 Balance 1580 615 Meds/Results Medications: Active Medications Generic Name Dose Route Start Last Admin Trade Name Freq PRN Reason Stop Dose Admin Amoxicillin/Clavulanate Potassium 1 tablet 05/20/24 21:00 05/21/24 08:31 Amoxicillin/Clavulanate K 875-125 Mg Tab PO 1 tablet Q12HR SATHYA Administration Azithromycin 500 mg 05/21/24 09:00 05/21/24 08:31 Azithromycin 250 Mg Tablet PO 500 mg DAILY SATHYA Administration Chlordiazepoxide HCl 25 mg 05/20/24 12:49 Chlordiazepoxide (*Crx) 25 Mg Capsule PO Q6H PRN Withdrawal Collagenase 1 applic 05/20/24 09:00 05/21/24 09:40 Collagenase Oint 30 Gm Tube TOPICAL 1 applic QAM SATHYA Administration Lorazepam 2 mg 05/20/24 12:49 Lorazepam Inj (*Crx) 2 Mg/Ml Vial IV PUSH Q2H PRN CIWA > 15 Losartan Potassium 25 mg 05/21/24 09:00 05/21/24 09:40 Losartan Potassium 25 Mg Tablet PO 25 mg DAILY SATHYA Administration Nicotine Polacrilex 4 mg 05/21/24 08:25 05/21/24 09:39 Nicotine (*Pbkc) 4 Mg Gum PO 4 mg PRN PRN Administration Nicotine Cravings Ondansetron HCl 4 mg 05/20/24 12:49 Ondansetron Inj 4 Mg/2 Ml Vial IV PUSH Q6H PRN Nausea And Vomiting Thiamine HCl 300 mg 05/21/24 09:00 05/21/24 08:36 Thiamine Hcl 200 Mg/2 Ml Vial IV PUSH 300 mg DAILY SATHYA Administration Radiology Results: ITS Impressions Abdomen/Pelvis CT 05/20/24 05:58 Impression: Minimal tree-in-bud opacities left lung base suggests small airways infectious process. Diffuse hepatic steatosis. Chest X-Ray 05/20/24 06:01 Impression: Clear lungs. Possible COPD. Labs Labs: Laboratory Results - last 24 hr 05/20/24 05/20/24 05/20/24 01:09 16:58 19:47 WBC RBC Hgb Hct MCV MCH MCHC RDW Plt Count MPV Immature Gran % (Auto) Neut % (Auto) Lymph % (Auto) [place] % (Auto) Eos % (Auto) Baso % (Auto) Lymph # (Auto) [place] # (Auto) Eos # (Auto) Baso # (Auto) Abs Immat Gran (auto) Absolute Neuts (auto) Absolute Nucleated RBC Nucleated RBC % % Immature Plt Fraction Sodium Potassium Chloride Carbon Dioxide Anion Gap BUN Creatinine Estim Creat Clear Calc Estimated GFR Glucose POC Capillary Glucose 139 H 138 H Calcium Magnesium Total Bilirubin AST ALT Alkaline Phosphatase Total Protein Albumin Triglycerides 108 Cholesterol 170 LDL Cholesterol Direct 85 HDL Direct 65 Vitamin B12 769.0 Folate 2.5 L TSH 1.380 05/21/24 05/21/24 05/21/24 06:21 07:44 11:32 WBC 8.1 RBC 4.28 L Hgb 14.9 Hct 43.9 MCV 102.6 H D MCH 34.8 H MCHC 33.9 RDW 16.5 H Plt Count 197 MPV 11.9 H Immature Gran % (Auto) 0.6 H Neut % (Auto) 76.7 H Lymph % (Auto) 12.8 L [place] % (Auto) 7.7 Eos % (Auto) 1.7 Baso % (Auto) 0.5 Lymph # (Auto) 1.04 [place] # (Auto) 0.6 Eos # (Auto) 0.1 Baso # (Auto) 0.0 Abs Immat Gran (auto) 0.05 H Absolute Neuts (auto) 6.2 Absolute Nucleated RBC 0.000 Nucleated RBC % 0.0 % Immature Plt Fraction 5.8 Sodium 134 L Potassium 3.1 L Chloride 102 Carbon Dioxide 26 Anion Gap 6 BUN 20 Creatinine 0.50 L Estim Creat Clear Calc 130 Estimated GFR > 60 Glucose 106 POC Capillary Glucose 160 H Calcium 8.5 Magnesium 1.9 Total Bilirubin 1.3 AST 84 H ALT 67 H Alkaline Phosphatase 563 H Total Protein 7.0 Albumin 3.4 L Triglycerides Cholesterol LDL Cholesterol Direct HDL Direct Vitamin B12 Folate TSH Quality VTE Prophylaxis VTE prophylaxis: mechanical ordered
[2024-05-25 15:44] LABS: Vitamin D 1,25 (OH)2 Total 59 pg/mL (18-72); Vitamin D2 1,25 (OH)2 <8 pg/mL; Vitamin D3 1,25 (OH)2 59 pg/mL
== END 2024-05-21 16:40 | disposition left against medical advice (07) ==
LOC: ANHED 05-20 04:41 → ANH3MEDSUR 05-20 11:02
PROVIDERS: Nurse Practitioner Acute Care; Admitting Provider Internal Medicine; Emergency Provider Emergency Medicine; PCP Internal Medicine; Visit Provider Internal Medicine
DX: F10.939 Alcohol use, unspecified with withdrawal, unspecified (principal); Y90.0 Blood alcohol level of less than 20 mg/100 ml; F19.139 Other psychoactive substance abuse with withdrawal, unspecified; E83.42 Hypomagnesemia; E43 Unspecified severe protein-calorie malnutrition; Z68.21 Body mass index [BMI] 21.0-21.9, adult; F17.210 Nicotine dependence, cigarettes, uncomplicated; R74.8 Abnormal levels of other serum enzymes; R74.01 Elevation of levels of liver transaminase levels; K76.0 Fatty (change of) liver, not elsewhere classified; J18.9 Pneumonia, unspecified organism; D50.9 Iron deficiency anemia, unspecified; Z20.822 Contact with and (suspected) exposure to COVID-19
CPT/HCPCS: 36415; 71045; 74176; 80053; 80061; 80307; 81001; 82077; 82607; 82652; 82746; 82948; 83605; 83690; 83735; 83880; 84145; 84443; 84484; 85025; 85055; 85610; 85652; 85730; 86140; 87040; 87637; 93005; 96365; 96367; 96374; 96375; 96376; 99212; 99285; A9270; G0378; G0463; J0360; J2060; J3411; J3475; J7030

== ENCOUNTER 2024-10-04 18:25 | Emergency (ER) | payer SELFPAY ==
--- NOTE | 2024-10-04 18:45 | PC.NURSE ---
patient sates that he doesn't want to be here ''long enough for all of the things to be done he states I know what will be happening, bloodwork, and he states it's hard to get my veins because I did drugs for 14 years patient a/o x 4, ambulated appropriately with a steady gait.
== END 2024-10-04 18:30 | disposition left against medical advice (07) ==
LOC: ANHED 18:49
PROVIDERS: Emergency Provider Emergency Medicine; PCP Internal Medicine
DX: M79.606 Pain in leg, unspecified (principal)
CPT/HCPCS: 99199

== ENCOUNTER 2025-04-27 11:25 | Emergency (ER) | payer OTHER, SELFPAY ==
[2025-04-27] VITALS (17 sets, daily range): BP systolic 100–123; BP diastolic 69–81; PULSE 71–84; RESP 11–20; TEMP 36.6; O2SAT 93–100
--- NOTE | ~2025-04-27 | CT_ITS ---
EXAMINATION: CT brain wo con COMPARISON: None HISTORY: AMS TECHNIQUE: Axial images were obtained through the brain without IV contrast. CT scan performed using dose optimization techniques including the following automated exposure control; adjustment of mA and/or kV; use of iterative reconstruction technique. Automatic exposure control was used to reduce radiation dose. Permanent radiation dose record is archived to PACS. FINDINGS: No acute infarct or parenchymal hemorrhage. No abnormal mass or mass effect. No midline shift. No extra-axial fluid collections. No hydrocephalus. . Mastoid air cells unremarkable. Sinuses and orbits unremarkable. No acute fracture. No significant facial or scalp soft tissue swelling evident. No radiopaque foreign body is seen. Impression: 1.No acute intracranial abnormality. Reviewed, dictated and finalized at location P. Impression: 1.No acute intracranial abnormality.
--- NOTE | ~2025-04-27 | CT_ITS ---
EXAMINATION: CT diagnostic chest wo con DATE: 04/27/2025 14:31 INDICATION: Possible pneumonia chest x-ray. TECHNIQUE: Computed tomography (CT) of the chest was performed without intravenous contrast. The dose-length product was 208.68 mGy-cm. COMPARISON: Chest x-ray dated 04/27/2025 FINDINGS: No thoracic lymphadenopathy. No significant pleural or pericardial effusion. Heart size normal. There are groundglass opacities in the lower lobes predominantly dependently. No endobronchial lesions. Mild emphysema. No pneumothorax. Mild thoracic spondylosis with accentuated kyphosis. IMPRESSION: 1. Dependent groundglass opacities of lower lobes. Differential diagnosis includes dependent atelectasis, aspiration pneumonitis, infectious pneumonitis and early interstitial lung disease. Reviewed, dictated and finalized at location O. IMPRESSION: 1. Dependent groundglass opacities of lower lobes. Differential diagnosis inclu mildred dependent atelectasis, aspiration pneumonitis, infectious pneumonitis and e antonio interstitial lung disease.
--- NOTE | ~2025-04-27 | XR_ITS ---
Examination: XR chest 1V Clinical History: AMS SEIZURE PUPILS PINPOINT PER NURSE NOTE Comparison: 07/20/2023 Technique: Portable AP Findings: Heart size normal. Minimal interstitial markings. Subtle opacity right midlung. No acute bony abnormality. IMPRESSION: 1. Possible developing small airspace opacity right midlung. Consider PA and lateral films with deep inspiration. Reviewed, dictated and finalized at location R. IMPRESSION: 1. Possible developing small airspace opacity right midlung. Consider PA and l ateral films with deep inspiration.
--- NOTE | 2025-04-27 11:39 | ECG_ITS ---
Test Date: 2025-04-27 12:03:38 Measurements Intervals [place] Rate: 72 P: 75 [place]: 169 QRS: 74 QRSD: 112 T: 72 QT: 424 QTc: 466 Interpretive Statements SINUS RHYTHM MINIMAL Q WAVES- INFERIOR LEADS BORDERLINE T WAVE ABNORMALITY- HIGH LATERAL LEADS BASELINE ARTIFACT- I, II, AVR, AVL, V3 BORDERLINE ECG Compared to ECG 05/20/2024 06:22:31 NO SIGNIFICANT CHANGE Electronically Signed On 04-27-2025 12:08:16 CDT by Maged Diamond D.O.
--- NOTE | 2025-04-27 11:46 | PC.NURSE ---
Security called to retrieve drugs and paraphernalia. Dank, head of security, is not in today per Luis information security officer. Luis unable to access Dank's safe. Drugs and paraphernalia locked in safe in ED nurse's station.
[2025-04-27 12:01] LABS: Hematocrit 26.4 % (42.0-52.0); Hemoglobin 8.2 g/dL (14.0-18.0); Immature Granulocyte Percent A 0.5 % (0-0.5); Lymphocytes Absolute Auto 0.89 K/mm3 (0.9-3.2); Mean Corpuscular HGB Conc 31.1 g/dl (32-36); Mean Corpuscular Hemoglobin 30.0 pg (26-34); Mean Corpuscular Volume 96.7 fl (80-100); Nucleated Red Blood Cells Absolute Auto 0.000 K/mm3 (0.0-0.012); Nucleated Red Blood Cells Perc 0.0 % (0.0-0.2); Platelet Count Result 209 k/mm3 (150-375); Red Blood Count 2.73 M/mm3 (4.6-6.20); White Blood Count 5.8 K/mm3 (4.5-10.0)
[2025-04-27 12:12] LABS: Acetaminophen < 10 ug/mL (10-30)
[2025-04-27 12:38] LABS: Influenza A QL RT-PCR Negative (Negative); Influenza B QL RT-PCR Negative (Negative); RSV RNA, RT-PCR Negative (Negative); SARS-CoV-2 RNA PCR Negative (Negative)
[2025-04-27 12:52] LABS: Alanine Aminotransferase 17 U/L (6-50); Albumin Level 3.0 g/dL (3.5-5.1); Alkaline Phosphatase 187 U/L (38-126); Anion Gap 10 mmol/L (4-12); Aspartate Amino Transferase 59 U/L (17-59); Bilirubin,Total 0.3 mg/dL (0.2-1.3); Blood Urea Nitrogen 60 mg/dL (9-20); Calcium 8.1 mg/dL (8.4-10.2); Carbon Dioxide 27 mmol/L (22-30); Chloride 97 mmol/L (98-107); Estimated CRCL calculation 36 ml/min; Estimated Glomerular Filt Rate 33; Glucose 105 mg/dL (65-110); Sodium 134 mmol/L (137-145); Total Protein 6.9 g/dL (6.3-8.2)
[2025-04-27 13:17] LABS: Add Urine Microscopic? YES; Appearance Urine Turbid (Clear); Glucose Urine UA Negative (Negative); Leukocyte Esterase Ur 1+ LEU/UL (Negative); Need Manual Microscopic Reviewed; Nitrate Urine Negative (Negative); Specific Grav Ur 1.015 (1.001-1.035)
[2025-04-27 13:31] LABS: Cannabinoid Screen Urine Negative (Negative)
[2025-04-27] MEDS: LACTATED RINGERS 2,000 ML 999 ML IV CONT (13:36)
[2025-04-27 13:46] LABS: Potassium 3.9 mmol/L (3.4-5.0)
--- NOTE | 2025-04-27 14:21 | ED_ITS ---
HPI - General Adult General Chief complaint: Altered Mental Status Stated complaint: AMS-seizure like activity Time Seen by Provider: 04/27/25 11:40 History of Present Illness HPI narrative: This is a 49-year-old male with history of alcohol abuse and heroin abuse presenting for altered mental status. Patient was sent from care home because the staff noticed that he has more groggy/100 in the mornings. On nurse thought she might have witnessed seizure activity although is was very short lived. When EMS arrived he was A&O x4 was brought to the hospital for evaluation. At this time the patient has no complaints although he is somnolent in frequently stops talking during the mentor the interview and requires redirection. Drug paraphernalia were found in his pocket including 2 capsules of an unknown substance and a one hitter smoking device. Her the care home he had been living in an abandoned house and was found to have a left femur fracture was that was repaired. He was then discharged to their care home for rehabilitation. He has not been at their facility for very long. 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 Open wound Drug addiction Blood loss anemia Encounter to establish care Surgical History Surgical History H/O vascular surgery 2020- lower R ext Family History Family History Father Acute myocardial infarction Alcoholism Social History Social History Smoking packs per day: 1 Smoking cigarettes per day: 20.0 Years smoked: 30 Smoking pack-years: 30.00 Smoking status: Current every day smoker Tobacco type: cigarettes Second hand tobacco smoke exposure: Yes Alcohol intake: current Drinks per week: 43 Substance use: current Substance use type: other Other substance usage details: Fentanyl Last use: 11/29/2023 Do You Feel Safe in your Home?: Yes Lack of Transportation: YES Lack of Food: Often True Current Housing: I Do Not Have Housing Concerned About Future Housing: YES Difficulty Paying Gas/Electric Bills: YES Difficulty Paying for Meds: YES Currently Unemployed: YES Education: High School Diploma/GED Difficulty w/ Childcare or Family Care: No Living arrangements: with family Additional living arrangements comments: Unable to return to his mother's home Occupation/Education: unemployed Gender identity (if verbalized by the patient): Male Spiritual care concerns: No Exam 2 Narrative: APPEARANCE: No apparent distress. A&O x1, somnolent Head: atraumatic. EYES: EOMI, NOSE: Atraumatic NECK: Trachea midline RESPIRATORY: No increased rate of breathing clear to auscultation CARDIOVASCULAR: RRR,, +2 pulses in all extremities ABDOMINAL: Non-distended MUSCULOSKELETAl: No obvious deformities NEURO: Alert. Moving 4/4 extremities SKIN:: Chronic. Wound hearing to the right heel without evidence of infection. Chronic appearing skin changes to the lower extremities. PSYCHIATRIC: Normal affect Course Vital Signs Vital signs: Vital Signs Temperature 97.9 F 04/27/25 11:26 Pulse Rate 72 04/27/25 11:26 Respiratory Rate 16 04/27/25 11:26 Blood Pressure 100/70 04/27/25 11:26 Pulse Oximetry 100 04/27/25 11:26 Oxygen Delivery Room Air 04/27/25 11:26 Temperature 97.9 F 04/27/25 11:26 Pulse Rate 72 04/27/25 12:15 Respiratory Rate 20 04/27/25 12:15 Blood Pressure 101/69 04/27/25 12:15 Pulse Oximetry 96 04/27/25 12:15 Oxygen Delivery Room Air 04/27/25 11:26 Medical Decision Making MDM Narrative Medical decision making narrative: -Course: 49-year-old male presenting from care home for altered mental status. On arrival the patient was altered is unable answer questions appropriately. We then found drug paraphernalia in his sweat pants. Altered mental status workup was performed. Was significant for acute kidney injury a creatinine of 2.14 and BUN of 60. Baseline 1 year ago was creatinine 0.5. Patient given 2 L of fluids. Hemoglobin is also 8.2. One year ago was 15 although the patient recently sustained a hip fracture and underwent repair. He is denying any hematochezia or melena. Wanted to do a digital rectal exam to further evaluate any patient declined. Chest x-ray showed possible middle lobe infiltrate but given his drug abuse could be aspiration pneumonia. CT ordered to further evaluate which showed emphysema and atelectasis. Patient does not have any respiratory signs or symptoms of aspiration pneumonia. At this time the patient's altered mental status is thought to be due to substance abuse given we found drug paraphernalia in his sweat pants. He does have some abnormalities with his workup including acute kidney injury and anemia which he has declined any further workup. I wanted to admit the patient to the hospital but he has declined understanding the risks. Patient has been generally uncooperative and confrontational throughout his stay here. Patient will be discharged back to the care home. -DDX includes but is not limited to: Polysubstance use disorder, chronic encephalopathy, dehydration sepsis pneumonia UTI intracranial hemorrhage Vital Signs Vital Signs: Vital Signs Temperature 97.9 F 04/27/25 11:26 Pulse Rate 72 04/27/25 11:26 Respiratory Rate 16 04/27/25 11:26 Blood Pressure 100/70 04/27/25 11:26 Pulse Oximetry 100 04/27/25 11:26 Oxygen Delivery Room Air 04/27/25 11:26 Temperature 97.9 F 04/27/25 11:26 Pulse Rate 72 04/27/25 12:15 Respiratory Rate 20 04/27/25 12:15 Blood Pressure 101/69 04/27/25 12:15 Pulse Oximetry 96 04/27/25 12:15 Oxygen Delivery Room Air 04/27/25 11:26 Lab Data 04/27/25 11:55 04/27/25 11:55 Labs: Lab Results 04/27/25 04/27/25 04/27/25 Range/Units 11:54 11:55 13:01 WBC 5.8 (4.5-10.0) K/mm3 RBC 2.73 L (4.6-6.20) M/mm3 Hgb 8.2 L D (14.0-18.0) g/dL Hct 26.4 L (42.0-52.0) % MCV 96.7 (80-100) fl MCH 30.0 (26-34) pg MCHC 31.1 L (32-36) g/dl RDW 14.9 H (11.5-14.5) % Plt Count 209 (150-375) k/mm3 MPV 10.5 H (7.4-10.4) fl Immature Gran % (Auto) 0.5 (0-0.5) % Neut % (Auto) 67.7 (45.5-73.1) % Lymph % (Auto) 15.5 L (18.3-44.2) % [place] % (Auto) 9.9 H (2.6-8.5) % Eos % (Auto) 5.9 H (0-4.4) % Baso % (Auto) 0.5 (0.2-1.2) % Lymph # (Auto) 0.89 L (0.9-3.2) K/mm3 [place] # (Auto) 0.6 (0.1-0.6) K/mm3 Eos # (Auto) 0.3 (0-0.3) K/mm3 Baso # (Auto) 0.0 (0.0-0.1) K/mm3 Abs Immat Gran (auto) 0.03 (0.00-0.031) K/mm3 Absolute Neuts (auto) 3.9 (1.3-6.7) K/mm3 Absolute Nucleated RBC 0.000 (0.0-0.012) K/mm3 Nucleated RBC % 0.0 (0.0-0.2) % Sodium 134 L (137-145) mmol/L Potassium 3.9 (3.4-5.0) mmol/L Chloride 97 L (98-107) mmol/L Carbon Dioxide 27 (22-30) mmol/L Anion Gap 10 (4-12) mmol/L BUN 60 H D (9-20) mg/dL Creatinine 2.14 H (0.7-1.3) mg/dL Estim Creat Clear Calc 36 ml/min Estimated GFR 33 L (59 - ) Glucose 105 (65-110) mg/dL POC Capillary Glucose 105 (65-105) mg/dl Calcium 8.1 L (8.4-10.2) mg/dL Total Bilirubin 0.3 (0.2-1.3) mg/dL AST 59 (17-59) U/L ALT 17 (6-50) U/L Alkaline Phosphatase 187 H (38-126) U/L Total Protein 6.9 (6.3-8.2) g/dL Albumin 3.0 L (3.5-5.1) g/dL Urine Color Dark yellow (Yellow) Urine Appearance Turbid H (Clear) Urine pH 5.0 (5.0-9.0) Ur Specific [place] 1.015 (1.001-1.035) Urine Protein 2+ H (Negative) mg/dL Urine Glucose (UA) Negative (Negative) mg/dL Urine Ketones Negative (Negative) mg/dL Ur Blood (Man) 3+ H (Negative) Urine Nitrate Negative (Negative) Urine Bilirubin Negative (Negative) Urine Urobilinogen 1.0 (<2.0) mg/dL Add Ur Microanalysis Reviewed Leukocyte Esterase Rfl 1+ H (Negative) ISABELLA/UL Urine RBC >100 H (0-2) /hpf Urine WBC 0-5 (0-3) /hpf Ur Squamous Epith Cells Few (Few) /hpf Urine Bacteria None seen /hpf Urine Casts 3-5 Urine Opiates Screen Negative (Negative) Urine Methadone Screen Negative (Negative) Acetaminophen < 10 L (10-30) ug/mL Ur Barbiturates Screen Negative (Negative) Ur Phencyclidine Scrn Negative (Negative) Ur Amphetamine Screen Negative (Negative) U Benzodiazepines Scrn Negative (Negative) Urine Cocaine Screen Negative (Negative) U Cannabinoids Screen Negative (Negative) Ethyl Alcohol < 10 (<10) mg/dL Influenza A (RT-PCR) Negative (Negative) Influenza B (RT-PCR) Negative (Negative) RSV (RT-PCR) Negative (Negative) SARS-CoV-2 RNA (RT-PCR) Negative (Negative) Discharge Plan Discharge Clinical Impression: Altered mental status, Acute kidney injury, Anemia Patient Disposition: Home Condition: Stable Instructions: Antibiotic Form Additional Instructions: Christiano was seen for altered mental status. We found drug paraphernalia on his person. I suspect his altered mental status is due to continued drug use while in your care home. He also has anemia and acute kidney injury but has declined any admission or further workup here in the hospital. If he changes mind or develops any new worsening symptoms he is welcome return to ED for re- evaluation. Patient Language: Tajik Prescriptions: No Action buprenorphine-naloxone [Suboxone] 8-2 mg film 1 film buccal BID 5 Days Qty: 10 0RF buprenorphine-naloxone 8-2 mg film 2 film buccal DAILY 3 Days Qty: 6 0RF Rx Instructions: place 1 film on inside of (each) cheek Follow-up/Referrals: Julian Lucero MD [Primary Care Provider, Internal Medicine] - 1 Week Referral Note: Anemia, acute kidney injury
--- NOTE | 2025-04-27 16:23 | PC.NURSE ---
Annalise Murdock called at [phone] d/t being unable to contact staff at [facility]. Annalise to contact staff and have them call our ER for report.
== END 2025-04-27 16:12 ==
PROVIDERS: Emergency Provider Emergency Medicine; PCP Internal Medicine
DX: R41.82 Altered mental status, unspecified (principal); D64.9 Anemia, unspecified; N17.9 Acute kidney failure, unspecified; Z20.822 Contact with and (suspected) exposure to COVID-19; F10.10 Alcohol abuse, uncomplicated; Y90.0 Blood alcohol level of less than 20 mg/100 ml; F11.10 Opioid abuse, uncomplicated; F17.210 Nicotine dependence, cigarettes, uncomplicated; R94.31 Abnormal electrocardiogram [ECG] [EKG]; R91.8 Other nonspecific abnormal finding of lung field
CPT/HCPCS: 36415; 70450; 71045; 71250; 80053; 80143; 80307; 81001; 82077; 82948; 85025; 87086; 87637; 93005; 96360; 96361; 99284; J7120